=== PATIENT | female | born 1950 | race Caucasian/White ===

== ENCOUNTER → 2017-08-17 11:44 | Outpatient (CLI) | payer MEDICARE, MEDICAID, SELFPAY ==
[2017-08-17 12:49] LABS: Basophils % 0.5 % (0.1-2.0); Eosinophils # 0.1 K/mm3 (0.0-0.4); Eosinophils % 2.7 % (0.1-12.0); Hematocrit 41.2 % (37.0-47.0); Hemoglobin 13.4 g/dL (12.2-16.2); Lymphocytes # 1.9 K/mm3 (0.7-4.5); Lymphocytes % 43.7 K/mm3 (10-50); Mean Corpuscular HGB Conc 32.5 g/dL (31.8-35.4); Mean Corpuscular Hemoglobin 35.2 pg (27.0-31.2); Mean Corpuscular Volume 108.1 fl (81-99); Mean Platelet Volume 8.5 fl (7.4-10.4); Monocytes # 0.3 K/mm3 (0.1-1.0); Monocytes % 7.3 % (1.7-9.3); Neutrophils % 45.8 % (37.0-80.0); Platelet Count 121 K/mm3 (142-424); Red Blood Count 3.81 M/mm3 (4.20-5.40); Red Cell Distribution Width 14.4 % (11.5-17.5); White Blood Count 4.4 K/mm3 (4.8-10.8)
== END ==
PROVIDERS: PCP Family Medicine; Visit Provider Family Medicine
DX: M05.721 Rheumatoid arthritis with rheumatoid factor of right elbow without organ or systems involvement (principal)
CPT/HCPCS: 36415; 85025

== ENCOUNTER → 2017-09-06 10:15 | Outpatient (CLI) | payer MEDICARE, MEDICAID, SELFPAY ==
--- NOTE | 2017-09-06 10:22 | XR_ITS ---
XR DEXA axial skeleton HISTORY: ITS.REASON: POST MENOPAUSAL ORDERING PHYSICIAN: Kane Sanchez MD PATIENT AGE: 67 years COMPARISON: None FINDINGS: The BMD measured at the left femoral is 0.713 g/cm squared with a T score of -2.3. This is considered Osteopenic according to the World Health Organization criteria. Fracture risk is Moderate. Treatment is advised. Lumbar spine density has a T score of -0.8 IMPRESSION: Osteopenia with moderate fracture risk. Treatment recommended. Suggest follow-up exam August 2019
--- NOTE | 2017-09-06 10:22 | MM_ITS ---
MM Dig screening mamm BI w/CAD CAD Screening COMPARISON: Digital mammograms 06/15/2016 and 08/29/2013 INDICATION: There is no personal or family history of breast cancer TECHNIQUE: Standard CC and MLO images were obtained. R2 CAD reviewed. FINDINGS: Scattered fibroglandular densities are seen throughout both breast. There are benign-appearing calcifications in each breast many of which are typical of secretory disease. There is no suspicious lesion and there are no suspicious microcalcifications. IMPRESSION: Stable exam with no suspicious lesion seen BI-RADS Category: 2 Benign Finding(s) RECOMMENDED FOLLOW-UP: 1YR - 1 YEAR FOLLOW-UP (A letter has been sent to the patient regarding results of the study.)
== END ==
PROVIDERS: Family Provider Family Medicine; PCP Family Medicine; Visit Provider Family Medicine
DX: Z12.31 Encounter for screening mammogram for malignant neoplasm of breast (principal); Z78.0 Asymptomatic menopausal state; Z13.820 Encounter for screening for osteoporosis
CPT/HCPCS: 77067; 77080

== ENCOUNTER → 2017-11-17 14:00 | Outpatient (CLI) | payer MEDICARE, MEDICAID, SELFPAY ==
[2017-11-17 14:38] LABS: Basophils % 0.5 % (0.1-2.0); Eosinophils # 0.1 K/mm3 (0.0-0.4); Hematocrit 41.1 % (37.0-47.0); Hemoglobin 13.6 g/dL (12.2-16.2); Lymphocytes # 1.7 K/mm3 (0.7-4.5); Lymphocytes % 34.4 K/mm3 (10-50); Mean Corpuscular HGB Conc 33.1 g/dL (31.8-35.4); Mean Corpuscular Hemoglobin 35.7 pg (27.0-31.2); Mean Corpuscular Volume 107.8 fl (81-99); Mean Platelet Volume 8.6 fl (7.4-10.4); Monocytes # 0.4 K/mm3 (0.1-1.0); Monocytes % 7.7 % (1.7-9.3); Neutrophils # 2.8 K/mm3 (1.8-7.8); Neutrophils % 55.5 % (37.0-80.0); Platelet Count 131 K/mm3 (142-424); Red Blood Count 3.81 M/mm3 (4.20-5.40)
[2017-11-17 15:23] LABS: Alanine Aminotransferase 39 U/L (12-78); Albumin Level 3.5 gm/dL (3.4-5.0); Alkaline Phosphatase 195 U/L (46-116); Aspartate Amino Transferase 45 U/L (15-37); Bilirubin,Direct 0.2 mg/dL (0.0-0.2); Bilirubin,Indirect 0.2 mg/dL (0.0-0.9); Bilirubin,Total 0.4 mg/dL (0.2-1.0); Total Protein,Serum 8.6 gm/dL (6.4-8.2)
== END ==
PROVIDERS: Visit Provider Family Medicine
DX: M05.721 Rheumatoid arthritis with rheumatoid factor of right elbow without organ or systems involvement (principal)
CPT/HCPCS: 36415; 80076; 85025

== ENCOUNTER → 2019-06-19 08:17 | Outpatient (CLI) | payer MEDICARE, SELFPAY ==
--- NOTE | 2019-06-19 08:21 | MM_ITS ---
PROCEDURE: MM DIG SCREENING MAMM BI W/CAD Patient Age:69Y CLINICAL INDICATION: SCREENING no hormones, no new complaints. Noncontributory family history. COMPARISON: [facility] DIGITAL MAMM-SCREEN BILATERAL from 08/21/2012 [facility] DIG MAMM-SCREEN DEBBIE from 08/29/2013 the [facility] DIG MAMM-SCREEN DEBBIE from 06/15/2016 [facility] MM Dig screening mamm BI w/CAD from 09/06/2017 TECHNIQUE: Standard CC and MLO images were obtained. R2 CAD reviewed. Additional MLO view nipple profile included FINDINGS: Today's technique slightly accentuates breast elements and markings bilaterally compared to prior studies. Minimal residual fibroglandular elements both breast . Slight progression of benign secretory type calcifications bilaterally particularly evident at the left breast. No suspicious grouped clustered microcalcifications otherwise seen.. No new focal mass. No dominant nor suspicious mass evident . Bilateral follow-up 1 year recommended IMPRESSION: No significant New findings Bilateral follow-up 1 year recommended Benign appearing calcifications bilaterally most evident left breast BI-RAD Category: 2 Benign Finding(s) FOLLOW-UP: 1YR 1 Year Follow-up (A letter has been sent to the patient regarding results of the study.) Dictated by: Mc Ferraro MD 06/21/2019 15:29 Electronically signed by Mc Ferraro MD in [place] 06/21/2019 15:29
== END ==
PROVIDERS: PCP Family Medicine; Visit Provider Family Medicine
DX: Z12.31 Encounter for screening mammogram for malignant neoplasm of breast (principal)
CPT/HCPCS: 77067

== ENCOUNTER → 2020-06-26 13:03 | Outpatient (CLI) | payer MEDICARE, SELFPAY ==
--- NOTE | 2020-06-26 13:06 | MM_ITS ---
PROCEDURE: MM DIG SCREENING MAMM BI W/CAD Referring Doctor: Kane Sanchez Patient Age:70Y CLINICAL INDICATION: SCREENING 70-year-old. Patient was difficult to position,-had difficulty holding still and was stiff No hormones. No new complaints Noncontributory family history COMPARISON: MG [facility] DIG MAMM-SCREEN DEBBIE from 08/29/2013 MG [facility] DIG MAMM-SCREEN DEBBIE from 06/15/2016 [facility] MM Dig screening mamm BI w/CAD from 09/06/2017 MG MM DIG SCREENING MAMM BI W/CAD from 06/19/2019 TECHNIQUE: Standard CC and MLO images were obtained. R2 CAD reviewed. Bilateral digital breast tomosynthesis included. Additional axillary CC views both breast included FINDINGS: Today's senior java web developer technique again slightly accentuates breast elements and markings bilaterally compared to prior studies.. [id number] al residual fibroglandular elements both breast again seen but with no new dominant or suspicious mass. No new suspicious calcifications. Left Breast-no new findings of significant concern Very slight progression linear calcifications left breast, most compatible with secretory type calcifications bilaterally particularly evident at the left breast. No suspicious grouped clustered microcalcifications otherwise seen.. No new focal mass. No dominant nor suspicious mass evident Right breast-stable appearance with no new areas of concern A few secretory calcifications seen on right breast as well Bilateral follow-up 1 year recommended IMPRESSION: No significant New findings. Overall stable mammogram Bilateral follow-up 1 year recommended Benign appearing calcifications bilaterally again seen, most notable at left breast BI-RAD Category: 2 Benign Finding(s) FOLLOW-UP: 1YR 1 Year Follow-up (A letter has been sent to the patient regarding results of the study.) Dictated by: Mc Ferraro MD 07/01/2020 13:48 Mc Ferraro MD in [place] 07/01/2020 13:48
== END ==
PROVIDERS: PCP Family Medicine; Visit Provider Family Medicine
DX: Z12.31 Encounter for screening mammogram for malignant neoplasm of breast (principal)
CPT/HCPCS: 77063; 77067

== ENCOUNTER → 2021-01-27 08:36 | Outpatient (CLI) | payer MEDICARE, OTHER, SELFPAY ==
--- NOTE | 2021-01-27 08:48 | CT_ITS ---
PROCEDURE: CT ABDOMEN PELVIS WO/W CON CLINICAL INDICATION: GROSS HEMATURIA COMPARISON: No exams were available for comparison TECHNIQUE: IV Contrast: 75ML OPTIRAY 350 Oral Contrast 20ml Gastroview Axial images obtained with sagittal and coronal reformats. All CT scans at the facility use one or more dose reduction, viz: automated exposure control, ma/kV adjustment per patient size (including targeted exams where dose is matched to indication, i.e. head), or iterative reconstruction technique. FINDINGS: Lower thorax: Posterior basilar segment right lower lobe abutting the pleura measuring 2.5 x 2.4 by 2.6 cm. This appears worsened for primary bronchogenic carcinoma. A hamartoma could give this appearance as well. It shows mild peripheral enhancement following injection contrast. Recommend follow-up dedicated CT scan chest additional evaluation. ABDOMEN: Liver: No masses or biliary dilatation. Gallbladder: Post cholecystectomy Pancreas: No masses or peripancreatic fluid collections. Spleen: unremarkable Adrenals: unremarkable Kidneys/ureters: unremarkable the kidneys are normal in size and show symmetrical function both appearing normal. ABDOMEN & PELVIS: Stomach bowel: Nondistended. No obvious mass or thickening. The small bowel appears normal. There is scattered stool and gas seen throughout the colon nasal oral contrast. There is diffuse diverticulosis of the sigmoid colon with mild diffuse wall thickening. No definite evidence of diverticulitis. Peritoneum: No abnormal fluid collections. No obvious inflammatory changes. No free air. Lymph nodes: No enlarged lymph nodes apparent. Vasculature: Prominent diffuse arthrosclerotic calcification of the abdominal aorta proximal iliac arteries but there is no aneurysm. Bones: There are mild multilevel degenerate changes of the lower thoracic and upper lumbar spine. PELVIS: Reproductive: The uterus is normal in size and mildly retroverted. are no definite filling defects Appendix: Not definitely visualized but there are no pericecal inflammatory changes noted.. Bladder: The urinary bladder is partially decompressed but there is no definite mass. IMPRESSION: 1. Somewhat suspicious mass posterior basilar segment right lower lobe, see recommendations above 2. Mild diverticulosis of the sigmoid colon without diverticulitis. 3. Grossly normal appearing bilateral kidneys and urinary bladder Dictated by: Dr. Buddy Pretty MD 01/27/2021 15:49 Dr. Buddy Pretty MD in [place] 01/27/2021 15:49
[2021-01-27 09:47] LABS: Blood Urea Nitrogen 20 mg/dl (7-17); Estimated Glomerular Filt Rate 45 ml/min (>60); GFR (African American) 54 ML/MIN (>60)
== END ==
PROVIDERS: PCP Family Medicine; Visit Provider Family Medicine
DX: I10 Essential (primary) hypertension (principal); R31.0 Gross hematuria
CPT/HCPCS: 36415; 74178; 82565; 84520; Q9967

== ENCOUNTER → 2021-03-01 09:45 | Outpatient (CLI) | payer MEDICARE, OTHER, SELFPAY ==
--- NOTE | 2021-03-01 10:03 | CT_ITS ---
PROCEDURE: CT CHEST WO/W CON CLINCAL INDICATION: SMOKER,NEOPLASM OF UNCERTAIN BEHAVIOR OF RT LOWER LUNG Pulmonary nodule noted in the right lung base on recent abdomen CT. COMPARISON: CT CT ABDOMEN PELVIS WO/W CON from 01/27/2021 TECHNIQUE: IV Contrast: 75ml Isovue 370 Axial images obtained with sagittal and coronal reformats. All CT scans at the facility use one or more dose reduction, viz: automated exposure control, ma/kV adjustment per patient size (including targeted exams where dose is matched to indication, i.e. head), or iterative reconstruction technique. FINDINGS: No mediastinal or hilar mass or adenopathy. Coronary artery calcifications are. COPD changes with scattered areas scarring. There is a noncalcified 3.4 x 3.3 x 2.5 cm mass in the right lower lobe posteriorly. The mass is somewhat spiculated with linear septations best demonstrated on the coronal reformatted images. This abuts the pleural surface. Cannot exclude pleural involvement. No obvious extension to the chest wall deep to the pleura. This is highly suspicious for malignancy. No pleural effusion. The left lung is clear. There is some peripheral contrast enhancement involving the lesion with decrease density centrally on the post enhanced images. The areas of decreased density however do not appear to represent fat as 1 would expect for hamartoma. The central decreased density may be due to developing necrosis. There are degenerative changes in the thoracic spine. The liver margin is somewhat irregular which may be seen with some developing cirrhosis. Please correlate clinically. IMPRESSION: 3.4 x 3.3 x 2.5 cm right lower lobe soft tissue mass as described above highly suspicious for malignancy. This should be amenable to percutaneous CT directed biopsy if clinically desired. No obvious mediastinal or hilar adenopathy and no pleural effusions apparent. Dictated by: Samir Wells MD 03/02/2021 05:16 Samir Wells MD in [place] 03/02/2021 05:16
[2021-03-01 10:11] LABS: Blood Urea Nitrogen 23 mg/dl (7-17); Estimated Glomerular Filt Rate 41 ml/min (>60); GFR (African American) 49 ML/MIN (>60)
== END ==
PROVIDERS: PCP Family Medicine; Visit Provider Family Medicine
DX: D38.1 Neoplasm of uncertain behavior of trachea, bronchus and lung (principal); F17.210 Nicotine dependence, cigarettes, uncomplicated
CPT/HCPCS: 36415; 71270; 82565; 84520; Q9967

== ENCOUNTER → 2021-04-29 08:59 | Outpatient (CLI) | payer MEDICARE, OTHER, SELFPAY ==
[2021-04-29 09:23] VITALS: BMI 23.1
[2021-04-29 09:40] VITALS: BP 141/61; PULSE 63; RESP 18; TEMP 36.4; O2SAT 95
--- NOTE | 2021-04-29 10:01 | CT_ITS ---
PROCEDURE: CT BIOPSY LUNG RT CLINICAL HISTORY: NEOPLASM RT LOWER LUNG COMPARISON: CT CT CHEST WO/W CON from 03/01/2021 TECHNIQUE: Axial images obtained with sagittal and coronal reformats. All CT scans at the facility use one or more dose reduction, viz: automated exposure control, ma/kV adjustment per patient size (including targeted exams where dose is matched to indication, i.e. head), or iterative reconstruction technique. FINDINGS: Following obtaining informed consent and time-out procedure and sedation with 0.5 mg of Versed IV and 25 mcg of fentanyl IV under aseptic conditions and local anesthesia with 1 percent buffered lidocaine using CT guidance, a 20 gauge Chiba needle was directed into the right lower lobe mass. Three passes were made into the lesion with CT guidance. Pathologist was present and confirm cytology. Patient tolerated the procedure well without evidence of immediate complication and left radiology suite in stable condition. Post biopsy chest x-ray x2 show no evidence of pneumothorax. Pre biopsy images once again demonstrated the right lower lobe mass posteriorly peripherally based. The mass does appear to have increased in size since the previous exam measuring 4 x 3 cm transverse and AP previously 3 x 2.7 cm. The lower margin of the mass now appears to extend into the chest wall posteriorly or at least into the pleural surface at the 11th rib interspace posteriorly. No obvious mediastinal or hilar adenopathy on this unenhanced exam. Coronary artery calcifications. Cytology is pending. IMPRESSION: Uneventful CT-guided biopsy of the right lower lobe mass. Cytology pending. The right lower lobe mass has slightly increased in size from 03/01/2021 and may now extending into the posterior chest wall. Dictated by: Samir Wells MD 04/30/2021 07:04 Samir Wells MD in [place] 04/30/2021 07:04
[2021-04-29 10:07] LABS: Activated Partial Thrombo Time 25.4 seconds (22.8-30.6); INR 0.99 (0.9-1.1); Prothrombin Time 11.2 seconds (10.1-12.5)
--- NOTE | 2021-04-29 12:26 | XR_ITS ---
PROCEDURE: XR CHEST AP CLINICAL HISTORY: Follow-up right-sided lung biopsy, evaluate for pneumothorax COMPARISON: CT CT CHEST WO/W CON from 03/01/2021 FINDINGS: No evidence of pneumothorax. Unremarkable cardiovascular structures. COPD with mild prominence of the interstitium. Right lower lobe mass once again noted at approximately 3.8 2.7 cm. IMPRESSION: No evidence of pneumothorax. Right lower lobe mass suspicious for neoplasm Dictated by: Samir Wells MD 04/29/2021 13:54 Samir Wells MD in [place] 04/29/2021 13:54
--- NOTE | 2021-04-29 15:06 | XR_ITS ---
PROCEDURE: XR CHEST 2V CLINICAL HISTORY: POST CT LUNG BIOPSY COMPARISON: CT CT CHEST WO/W CON from 03/01/2021 CR XR CHEST AP from 04/29/2021 FINDINGS: The cardiomediastinal silhouette and pulmonary vascularity are within normal limits. COPD changes. Right lower lobe mass once again noted unchanged. There is no evidence of pneumothorax. Degenerative changes thoracic spine. IMPRESSION: No evidence of pneumothorax. No change right lower lobe mass Dictated by: Samir Wells MD 04/29/2021 15:25 Samir Wells MD in [place] 04/29/2021 15:25
== END ==
PROVIDERS: Radiology Diagnostic Radiology; PCP Family Medicine; Visit Provider Family Medicine
DX: D38.1 Neoplasm of uncertain behavior of trachea, bronchus and lung (principal); Z51.81 Encounter for therapeutic drug level monitoring
CPT/HCPCS: 32408; 71045; 71046; 77012; 85610; 85730; 88172; 88173; 88305; 88342

== ENCOUNTER → 2021-07-05 10:09 | Outpatient (CLI) | payer MEDICARE, OTHER, SELFPAY ==
--- NOTE | 2021-07-05 10:14 | MM_ITS ---
PROCEDURE INFORMATION: Exam: MG Bilateral Screening 3D Mammography Exam date and time: 07/05/2021 10:14 AM Age: 71 years old Clinical indication: screening mammogram TECHNIQUE: Imaging protocol: Bilateral screening tomosynthesis and 2D mammography including computer-aided detection (CAD) when performed. COMPARISON: 1. MG MM DIG SCREENING MAMM BI W/CAD 06/26/2020 1:06 PM 2. MG MM DIG SCREENING MAMM BI W/CAD 06/19/2019 8:35 AM 3. MG [facility] MM Dig screening mamm BI w/CAD 09/06/2017 10:30 AM 4. MG [facility] DIG MAMM-SCREEN DEBBIE 06/15/2016 5:35 PM FINDINGS: MAMMOGRAPHY: Breast composition: There are scattered areas of fibroglandular density. Mass: None. Architectural distortion: No new or suspicious architectural distortion. Calcifications: Stable benign-appearing calcifications are present. No new or suspicious cluster of microcalcifications have developed. Asymmetric density: No new or suspicious asymmetric density is present Skin thickening: None. Axillary adenopathy: None. IMPRESSION: No mammographic evidence of malignancy. Recommend annual screening mammography unless otherwise clinically indicated. ASSESSMENT: BI-RADS category 2: Benign
== END ==
PROVIDERS: PCP Family Medicine; Visit Provider Family Medicine
DX: Z12.31 Encounter for screening mammogram for malignant neoplasm of breast (principal)
CPT/HCPCS: 77063; 77067

== ENCOUNTER → 2021-10-19 11:24 | Outpatient (POV) | payer MEDICARE, OTHER, SELFPAY | PROVIDERS: Visit Provider Dermatology | DX: Z00.00 Encounter for general adult medical examination without abnormal findings (principal) ==

== ENCOUNTER → 2022-07-28 08:51 | Outpatient (CLI) | payer MEDICARE, OTHER, SELFPAY ==
--- NOTE | 2022-07-28 09:04 | CT_ITS ---
FINAL REPORT TECHNIQUE: Thin section axial images were obtained through the abdomen after intravenous contrast. Oral contrast was given. Reconstruction images were obtained from the axial data. This study was performed with techniques to keep radiation doses as low as reasonably achievable (ALARA). Individualized dose reduction techniques using automated exposure control or adjustment of mA and/or kV according to the patient's size were employed. CLINICAL HISTORY: Lung cancer diagnosed in 2021 COMPARISON: 01/27/2021 FINDINGS: No focal liver lesion is identified. There is a nodular contour to the liver consistent with cirrhosis. There is a recanalized paraumbilical vein. The spleen and pancreas are unremarkable. There is a left adrenal nodule which is stable. Right adrenal gland is normal. The kidneys are normal. Abdominal GI tract is without acute abnormality. There is no abdominal lymphadenopathy or ascites. The uterus is present. The endometrium is prominent for age. The ovaries are normal for age. The appendix is normal. There is diverticulosis without evidence of diverticulitis. There is wall thickening of the sigmoid colon, unchanged from prior. No surrounding inflammation is identified. There is no pelvic lymphadenopathy or ascites. No acute osseous abnormalities identified. IMPRESSION: No evidence of metastatic disease in the abdomen or pelvis. Cirrhosis. Diverticulosis with stable presumed chronic wall thickening of the sigmoid colon. Prominent endometrium. If patient has abnormal uterine bleeding, recommend follow-up ultrasound. Reviewed, Interpreted and Dictated by Rocio Javed MD Transcribed by Melody Byrd Authenticated and . [facility]
--- NOTE | 2022-07-28 09:04 | CT_ITS ---
FINAL REPORT TECHNIQUE: Thin section axial images were obtained from the thoracic inlet through the upper abdomen after intravenous contrast injection. This study was performed with techniques to keep radiation doses as low as reasonably achievable (ALARA). Individualized dose reduction techniques using automated exposure control or adjustment of mA and/or kV according to the patient's size were employed. CLINICAL HISTORY: Lung cancer diagnosed in 2021 COMPARISON: 03/01/2021 FINDINGS: There is no axillary or mediastinal lymphadenopathy. There is new right infrahilar lymphadenopathy measuring 2.8 cm. There is no pleural or pericardial effusion. There is a right lower lobe mass measuring 3.5 cm, previously measured 3 cm. It is now cavitary. There is a subpleural left upper lobe ground-glass nodule measuring 6 mm which is new. This is best seen on image 30. Note is made of emphysema. The lungs are otherwise clear. There is no acute osseous abnormality. IMPRESSION: Interval increase in size in the right lower lobe mass consistent with worsening or recurrent disease. A new right infrahilar lymphadenopathy, likely metastatic. New subcentimeter left upper lobe nodule. Reviewed, Interpreted and Dictated by Rocio Javed MD Transcribed by Melody Byrd Authenticated and [facility]
[2022-07-28 09:11] LABS: Blood Urea Nitrogen 19 mg/dl (7-17); Estimated Glomerular Filt Rate 40 ml/min (>60); GFR (African American) 49 ML/MIN (>60)
== END ==
PROVIDERS: PCP Family Medicine; Visit Provider Internal Medicine Medical Oncology
DX: C34.91 Malignant neoplasm of unspecified part of right bronchus or lung (principal); Z03.89 Encounter for observation for other suspected diseases and conditions ruled out
CPT/HCPCS: 36415; 71260; 74177; 82565; 84520; Q9967

== ENCOUNTER → 2022-08-26 09:50 | Outpatient (CLI) | payer MEDICARE, OTHER, SELFPAY | PROVIDERS: PCP Family Medicine; Visit Provider Internal Medicine Pulmonary Disease | DX: R06.09 Other forms of dyspnea (principal) | CPT/HCPCS: 94060; 94618 ==

== ENCOUNTER → 2022-12-15 08:24 | Outpatient (CLI) | payer MEDICARE, OTHER, SELFPAY ==
--- NOTE | 2022-12-15 08:30 | MM_ITS ---
PROCEDURE INFORMATION: Exam: MG Bilateral Screening 3D Mammography Exam date and time: 12/15/2022 8:23 AM Age: 72 years old Clinical indication: Screening examination TECHNIQUE: Imaging protocol: Bilateral Screening tomosynthesis and 2D mammography including computer-aided detection (CAD) when performed. COMPARISON: 1. MG MM DIG SCREENING MAMM BI W/CAD 07/05/2021 10:11 AM 2. MG MM DIG SCREENING MAMM BI W/CAD 06/26/2020 1:06 PM FINDINGS: MAMMOGRAPHY: Breast composition: There are scattered areas of fibroglandular density. Mass: None. Architectural distortion: None. Calcifications: No suspicious calcifications. Asymmetric density: None. Skin thickening: None. Axillary adenopathy: None. IMPRESSION: No mammographic evidence of malignancy. Annual screening is recommended unless otherwise clinically indicated. ASSESSMENT: BI-RADS Category 1: Negative
--- NOTE | 2022-12-15 08:30 | XR_ITS ---
FINAL REPORT CLINICAL HISTORY: osteoperosis COMPARISON: None FINDINGS: Using L1-4, the bone mineral density of the spine is 0.927 g/cm2, corresponding to T-score of -1.1, consistent with osteopenia. Using the left hip, the bone mineral density of the femoral neck is 0.612 g/cm2, corresponding to a T-score of -2.7, consistent with osteoporosis. Using the right hip, the bone mineral density of the femoral neck is 0.564 g/cm2, corresponding to a T-score of -2.6, consistent with osteoporosis. FRAX not reported because: Some T-score for Spine Total or hip Total or femoral neck at or below -2.5. Treated for osteoporosis. NOTE: T-score: Standard deviation compared with peak bone mass of young adult mean. *Following the recommendations of the International Society of Bone densitometry, classification of hip BMD is based on the lower of two T-scores; total hip or femoral neck. IMPRESSION: Diminished bone mineral density consistent with osteopenia in the lumbar spine and osteoporosis in the bilateral hips. Reviewed, Interpreted and Dictated by Lulu Hernandez MD Transcribed by Yvette Mckinney Authenticated and [facility]
== END ==
PROVIDERS: PCP Family Medicine; Visit Provider Nurse Practitioner Family
DX: Z12.31 Encounter for screening mammogram for malignant neoplasm of breast (principal); M81.0 Age-related osteoporosis without current pathological fracture
CPT/HCPCS: 77063; 77067; 77080

== ENCOUNTER 2023-12-25 15:49 | Outpatient (CLI) | payer MEDICARE, OTHER, SELFPAY ==
[2023-12-25 15:35] LABS: Microscopic, Urine URINE MICROSCOPIC (MICROSCOPIC)
[2023-12-25 16:13] LABS: Appearance,Urine CLEAR (Clear); Bilirubin,Urine 1+ (Negative); Blood, Urine 2+ (Negative); Color,Urine YELLOW (Yellow); Glucose,Urine (UA) Negative (Negative); Ketones,Urine Negative (Negative); Leukocyte Esterase,Urine 2+ (Negative); Nitrate,Urine Negative (Negative); PH,Urine 6.5 (5.0-8.5); Protein,Urine TRACE (Negative)
[2023-12-25 16:57] LABS: Bacteria,Urine Trace /lpf
[2023-12-25 16:58] LABS: RBC,Urine Occasional #/hpf (0-3)
[2024-01-04 17:30] LABS: Atopobium vaginae Low - 0 Score (.); BVAB2 Low - 0 Score (.); Candida albicans NAA Negative (Negative); Candida glabrata Negative (Negative); Chlamydia Trachomatis NAA Negative (Negative); HSV 1 NAA Negative (Negative); HSV 2 NAA Negative (Negative); Megasphaera 1 Low - 0 Score (.); Neisseria gonorrhoeae NAA Negative (Negative); Trich vag NAA Negative (Negative)
== END 2023-12-25 23:59 | disposition home or self-care (01) ==
LOC: LAB.DROPOF 15:50
PROVIDERS: PCP Urology; Visit Provider Urology
DX: N76.0 Acute vaginitis (principal); R31.9 Hematuria, unspecified; M05.721 Rheumatoid arthritis with rheumatoid factor of right elbow without organ or systems involvement
CPT/HCPCS: 81001; 87086; 87491; 87529; 87563; 87591; 87661; 87798; 87801

== ENCOUNTER 2024-08-16 07:34 | Outpatient (CLI) | payer MEDICARE, OTHER, SELFPAY ==
--- NOTE | 2024-08-16 07:35 | CT_ITS ---
FINAL REPORT TECHNIQUE: Axial CT of the abdomen and pelvis, without and with IV contrast. This study was performed with techniques to keep radiation doses as low as reasonably achievable, (ALARA). Individualized dose reduction techniques using automated exposure control or adjustment of mA and/or kV according to the patient''s size were employed. CLINICAL HISTORY: Hematuria COMPARISON: 07/28/2022 FINDINGS: Abdomen: There is right lower lobe mass measuring 70 x 52 mm with pleural and paraspinal involvement, likely extends to the chest wall to involve the right T11 and T12 ribs. Liver has an unremarkable CT appearance. The spleen and pancreas unremarkable. There is mild enlargement of the left adrenal gland, similar to prior, probably due to benign adenoma. There is an enlarged paraumbilical vein suggesting underlying portal hypertension. Precontrast imaging shows no renal stone disease. Postcontrast imaging of the kidneys shows no mass or obstruction. No bowel obstruction or fluid collection is seen. Pelvis: There is mild sigmoid diverticulosis. Bladder diverticula are identified. The uterus is retroverted. The appendix is not visualized. Pelvic bowel loops are unremarkable. No fluid collection or adenopathy is seen. IMPRESSION: No findings to account for patient's hematuria. No evidence of metastatic disease in the abdomen or pelvis. Findings suggest portal hypertension. Large right lower lobe mass with pleural and chest wall involvement. Reviewed, Interpreted and Dictated by Lulu Hernandez MD Transcribed by Melody Byrd Authenticated and [facility]
--- NOTE | 2024-08-16 07:39 | CT_ITS ---
FINAL REPORT CLINICAL HISTORY: LBP COMPARISON: None FINDINGS: CT LUMBAR SPINE TECHNIQUE: Thin section noncontrast axial CT with sagittal reconstructions This study was performed with techniques to keep radiation doses as low as reasonably achievable, (ALARA). Individualized dose reduction techniques using automated exposure control or adjustment of mA and/or kV according to the patient's size were employed. FINDINGS: There is moderate to diffuse degenerative disc disease present in the lumbar spine, without evidence of fracture or high-grade stenosis. There is incidental note made of a right lower lobe mass which extends into the right chest wall in the right paraspinal region at the T11 and T12 levels. There is probable extension of tumor into the right T11-12 neural foramen. IMPRESSION: Moderate to diffuse degenerative disc disease without evidence of fracture or high-grade stenosis. Right lower lobe mass which extends into the chest wall and right paraspinous region, with probable extension of tumor into the right T11-12 neural foramen. Reviewed, Interpreted and Dictated by Lulu Hernandez MD Transcribed by Kathie Ribera Authenticated and [facility]
[2024-08-16 08:02] LABS: Blood Urea Nitrogen 50 mg/dl (7-17); Estimated Glomerular Filt Rate 32 ml/min (>60); GFR (African American) 38 ML/MIN (>60)
[2024-08-16] MEDS: 0.9 % SODIUM CHLORIDE 50 ML VIAL IV (08:57)
[2024-08-16] MEDS: SODIUM CHLORIDE 0.9% 10ML SYR (RAD ONLY) 10 ML IV (08:57)
[2024-08-16] MEDS: IOPAMIDOL-370 (76%);100ML BOTTLE 50 ML IV (08:57)
== END 2024-08-16 23:59 | disposition home or self-care (01) ==
PROVIDERS: PCP Nurse Practitioner; Visit Provider Urology
DX: M54.50 Low back pain, unspecified (principal); R31.9 Hematuria, unspecified
CPT/HCPCS: 36415; 72131; 74178; 82565; 84520; Q9967

== ENCOUNTER 2024-09-03 23:15 | Observation (INO) | payer MEDICARE, OTHER, SELFPAY ==
[2024-09-03 23:05] VITALS: BP 129/55; PULSE 80; RESP 20; TEMP 36.9; O2SAT 100; BMI 22.3
--- NOTE | 2024-09-03 23:12 | CT_ITS ---
PROCEDURE INFORMATION: Exam: CT Abdomen And Pelvis With Contrast Exam date and time: 09/04/2024 12:18 AM Age: 74 years old Clinical indication: Vomiting; Additional info: Vomiting, cancer patient TECHNIQUE: Imaging protocol: Computed tomography of the abdomen and pelvis with contrast. 3D rendering (Not supervised by radiologist): MIP and/or 3D reconstructed images were created by the technologist. Radiation optimization: All CT scans at this facility use at least one of these dose optimization techniques: automated exposure control; mA and/or kV adjustment per patient size (includes targeted exams where dose is matched to clinical indication); or iterative reconstruction. Contrast material: ISOVUE; Contrast volume: 70 ml; Contrast route: IV; COMPARISON: CT ABDOMEN PELVIS WO/W CON 08/16/2024 8:43 AM FINDINGS: Liver: The liver is cirrhotic. Gallbladder and biliary ducts: The gallbladder is absent. Pancreas: Normal. No ductal dilation. Spleen: Normal. No splenomegaly. Adrenal glands: Normal. No mass. Kidneys and ureters: Normal. No hydronephrosis. Stomach and bowel: Numerous sigmoid diverticula without inflammatory changes. Appendix: No evidence of appendicitis. Intraperitoneal space: Unremarkable. No free air. No significant fluid collection. Vasculature: Extensive calcification of the aorta and branch vessels. There is no aneurysm. There is recanalization of the umbilical vein. Lymph nodes: Unremarkable. No enlarged lymph nodes. Urinary bladder: Unremarkable as visualized. Reproductive: Unremarkable as visualized. Bones/joints: 8.5 cm soft tissue mass at the right lung base which extends into the posterior chest wall with erosion of the right 11th rib and probable invasion of the paraspinous musculature. Degenerative changes of the lumbar spine. Soft tissues: See Bones/joints finding. IMPRESSION: No acute intra-abdominal abnormality. 8.5 cm soft tissue mass at the right lung base which extends into the posterior chest wall with erosion of the right 11th rib and probable invasion of the paraspinous musculature. Hepatic cirrhosis with evidence of portal hypertension. Atherosclerotic vascular disease. Diverticulosis of the colon.
--- NOTE | 2024-09-03 23:12 | CT_ITS ---
PROCEDURE INFORMATION: Exam: CTA Chest With Contrast Exam date and time: 09/04/2024 12:18 AM Age: 74 years old Clinical indication: Other: Hypoxia; Additional info: Hypoxia cancer general weakness TECHNIQUE: Imaging protocol: Computed tomographic angiography of the chest with contrast. Exam focused on the arteries. 3D rendering (Not supervised by radiologist): MIP and/or 3D reconstructed images were created by the technologist. Radiation optimization: All CT scans at this facility use at least one of these dose optimization techniques: automated exposure control; mA and/or kV adjustment per patient size (includes targeted exams where dose is matched to clinical indication); or iterative reconstruction. Contrast material: ISOVUE; Contrast volume: 70 ml; Contrast route: INTRAVENOUS (IV); COMPARISON: CT CHEST W CON 07/28/2022 9:51 AM FINDINGS: Pulmonary arteries: Normal. No pulmonary emboli. Aorta: Mild calcification of the aorta. Lungs: 8.5 x 7 x 8.5 cm soft tissue mass in the posteromedial right lower lobe. Pleural spaces: Unremarkable. No pneumothorax. No pleural effusion. Heart: Unremarkable. No cardiomegaly. No pericardial effusion. Coronary arteries: Moderate calcification of the coronary arteries. Lymph nodes: Unremarkable. No enlarged lymph nodes. Bones/joints: The mass surrounds and erodes the right 11th rib. Soft tissues: Unremarkable. IMPRESSION: No pulmonary embolus. No aortic aneurysm. 8.5 x 7 x 8.5 cm soft tissue mass in the posteromedial right lower lobe.
--- NOTE | 2024-09-03 23:13 | CT_ITS ---
PROCEDURE INFORMATION: Exam: CT Head Without Contrast Exam date and time: 09/04/2024 12:15 AM Age: 74 years old Clinical indication: Other: Weakness; Additional info: Generalized weakness known met cancer TECHNIQUE: Imaging protocol: Computed tomography of the head without contrast. Radiation optimization: All CT scans at this facility use at least one of these dose optimization techniques: automated exposure control; mA and/or kV adjustment per patient size (includes targeted exams where dose is matched to clinical indication); or iterative reconstruction. COMPARISON: No relevant prior studies available. FINDINGS: Brain: No hemorrhage. Periventricular hypoattenuation. Likely chronic microvascular ischemic demyelination. . No mass effect. Moderate generalized atrophy Cerebral ventricles: No ventriculomegaly. Paranasal sinuses: Visualized sinuses are unremarkable. No fluid levels. Mastoid air cells: Visualized mastoid air cells are well aerated. Orbital cavities: Bilateral lens replacement. Bones: Unremarkable. No acute fracture. Soft tissues: Unremarkable. IMPRESSION: No acute intracranial abnormality.
[2024-09-03] MEDS: LACTATED RINGERS 1000ML 1,000 ML 999 ML IV (23:28)
[2024-09-03 23:29] LABS: VBG Base Excess 4.5 mmol/L (-2.4-2.3); VBG HCO3 29.3 mmol/L (23-30); VBG Oxygen Saturation 55.1 % (50-70); VBG PCO2 48.3 mmol/L (35-51); VBG PO2 28.9 mmol/L (28-40); VBG Total CO2 30.8 mmol/L (23-27)
--- NOTE | 2024-09-03 23:29 | ECG_ITS ---
APPROVED REPORT Exam: Resting ECG HR:80 bpm ECG Measurements Heart Rate 80 AXES QRSd 80 QRS 84 QT 392 T 54 QTc 428 Conclusion Sinus rhythm NONSPECIFIC T-WAVE ABNORMALITY No STEMI Electronically signed by : ARIES NATHAN, 09/06/2024 07:02:46
[2024-09-03 23:30] LABS: Basophils # 0.1 K/mm3 (0-0.2); Basophils % 0.3 % (0.1-2.0); Eosinophils % 0.1 % (0.1-12.0); Hematocrit 32.6 % (37.0-47.0); Hemoglobin 10.2 g/dL (12.2-16.2); Lymphocytes # 1.5 K/mm3 (0.7-4.5); Lymphocytes % 8.9 % (10-50); Mean Corpuscular HGB Conc 31.3 g/dL (31.8-35.4); Mean Corpuscular Hemoglobin 32.7 pg (27.0-31.2); Mean Corpuscular Volume 104.5 fl (81-99); Mean Platelet Volume 10.2 fl (7.4-10.4); Monocytes # 0.9 K/mm3 (0.1-1.0); Neutrophils # 14.6 K/mm3 (1.8-7.8); Neutrophils % 84.9 % (37.0-80.0); Platelet Count 544 K/mm3 (142-424); Red Blood Count 3.12 M/mm3 (4.20-5.40); Red Cell Distribution Width 16.4 % (11.5-17.5); White Blood Count 17.2 K/mm3 (4.8-10.8)
[2024-09-03 23:33] VITALS: BP 118/50; PULSE 68; O2SAT 88
[2024-09-03 23:33] LABS: MANUAL DIFFERENTIAL MANUAL DIFFERENTIAL (MANUAL DIFF)
[2024-09-03 23:36] LABS: INR 1.01 (0.9-1.1); Prothrombin Time 11.1 seconds (9.2-12.1)
[2024-09-03 23:37] LABS: Coronavirus 19, PCR Not Detected (NotDetected); Influenza A, PCR Not Detected (NotDetected); Influenza B, PCR Not Detected (NotDetected)
[2024-09-03 23:37] LABS: Microscopic, Urine URINE MICROSCOPIC (MICROSCOPIC)
[2024-09-03 23:39] LABS: Bilirubin,Urine Negative (Negative); Blood, Urine TRACE-I (Negative); Color,Urine YELLOW (Yellow); Glucose,Urine (UA) Negative (Negative); Ketones,Urine Negative (Negative); Leukocyte Esterase,Urine Negative (Negative); Nitrate,Urine Negative (Negative); Protein,Urine TRACE (Negative)
--- NOTE | 2024-09-03 23:40 | [facility].EDGENADL ---
Discharge Plan Disposition Patient Disposition: Admitted Condition: Fair Prescriptions Prescriptions: No Action atenolol 25 mg tablet 25 mg PO DAILY triamterene-hydrochlorothiazid 37.5-25 mg capsule 37.5 cap PO DAILY rosuvastatin 10 mg tablet 10 mg PO DAILY fluconazole 150 mg tablet See Rx Instructions .Route .COMPLEX Qty: 6 0RF Rx Instructions: One Daily for three days and then once weekly; estradiol 0.01 % (0.1 mg/gram) cream See Rx Instructions vaginal .COMPLEX Qty: 42.5 2RF Rx Instructions: Using finger technique daily for two weeks and then twice weekly vaginally; albuterol sulfate 90 mcg/actuation HFA aerosol inhaler 2 inh inhalation QID PRN (Reason: shortness of breath or wheezing) 90 Days Qty: 8.5 2RF ipratropium-albuterol 0.5 mg-3 mg(2.5 mg base)/3 mL solution for nebulization 3 ml inhalation QID PRN (Reason: shortness of breath or wheezing) 90 Days Qty: 360 3RF Stiolto Respimat 2.5-2.5 mcg/actuation mist 2 puff inhalation DAILY 90 Days Qty: 4 0RF Referrals Follow up/Referrals: Provider,Referral, MD [Primary Care Provider] - See instructions Clinical Impressions Clinical Impression: UTI (urinary tract infection), Lung cancer, Generalized weakness Print Language Print Language: Italian Discharge ED Provider: Arun Hudson Adult HPI General Chief complaint: Nausea/Vomiting/Diarrhea Stated complaint: Weakness Time Seen by Provider: 09/03/24 23:15 Mode of Arrival: EMS Source of Information: Patient Limitations: No Limitations Description of Symptoms (Recalled from ER Triage Doc. by RN): Generalized weakness worse today with some nausea and vomiting History of Present Illness HPI narrative: 74-year-old female with known, untreated metastatic lung cancer presents to the ER for complaints of generalized weakness that have been worsening in the last 2 days. Patient presented via EMS who helped provide history, as well as her daughter who is at bedside. EMS reports they found her hypoxic in the mid 80s though she does not wear nasal cannula at home. They placed her on 2 L and her oxygenation improved to the mid 90s. EMS reports they administered breathing treatment and route since patient was hypoxic but she was not wheezing. They reported she had had vomiting earlier today as well but was not complaining of nausea or abdominal pain. Reportedly patient has not had any falls, does not take blood thinners. Daughter provides additional history stating patient has seemed worse in the last 2 days, her generalized weakness is worse, she reportedly felt swimmy after receiving her home hydrocodone dose and then had nausea and emesis. Daughter states that the patient manages her home medications and she is not clear how much of her hydrocodone she is or is not taking. Patient reports no chest pain or sensation of shortness of breath. She has not had cough, fevers, chills, she has chronic back pain and pain in the skin of the left hip. Back pain according to daughter secondary to known metastasis to the spine, left hip pain is secondary to pressure ulcer since patient typically lies on her left side. It is being treated with medications at home. Daughter reports that hospice is supposed to come to the house on Monday for evaluation. Related Data Home Medications ?Medication ?Instructions ?Recorded ?Confirmed atenolol 25 mg tablet 25 mg PO DAILY DAILY 06/27/19 12/25/23 rosuvastatin 10 mg tablet 10 mg PO DAILY Cholesterol 06/27/19 12/25/23 triamterene 37.5 37.5 cap PO DAILY BP 06/27/19 12/25/23 mg-hydrochlorothiazide 25 mg capsule Previous Rx's ?Medication ?Instructions ?Recorded albuterol sulfate 90 mcg/actuation 2 inh inhalation QID PRN shortness 08/29/22 aerosol inhaler of breath or wheezing 90 days #8.5 grams ipratropium 0.5 mg-albuterol 3 mg 3 ml inhalation QID PRN shortness 08/29/22 (2.5 mg base)/3 mL nebulization of breath or wheezing 90 days #360 soln mL estradiol 0.01% (0.1 mg/gram) See Rx Instructions vaginal 12/25/23 vaginal cream .COMPLEX #42.5 grams fluconazole 150 mg tablet See Rx Instructions .Route 12/25/23 .COMPLEX #6 tabs tiotropium 2.5 mcg-olodaterol 2.5 2 puff inhalation DAILY 90 days #4 01/15/24 mcg/actuation mist for inhalation grams (Stiolto Respimat) Allergies Allergy/AdvReac Type Severity Reaction Status Date / Time ibuprofen Allergy Severe Swelling Verified 12/25/23 11:30 of Lip/Tongue/Throat [facility] Disclaimer: The information contained in this section may have been updated after the patient was seen, as this information can be updated by other users. Medical History Squamous cell carcinoma Right lower lobe lung mass Smoking greater than 30 pack years Dyspnea on exertion Bronchogenic lung cancer Cancer Surgical History History of lung biopsy History of ear, nose, and throat (ENT) surgery History of cholecystectomy Family History Other No significant family history Social History Smoking Status: Former smoker tobacco type: cigarettes packs per day: 1 second hand exposure: No alcohol intake: never substance use type: denies use current occupational status: disabled Travel in the last 8 weeks: None household members: none housing: house current occupational exposures/hazards: No caffeine: Yes Other Medical History Have you received the Flu Vaccine for this season: Yes Have you received the Pneumonia Vaccine: Yes ROS Obtained: Yes Systems reviewed as appropriate & no additional complaints except as documented Per HPI Physical Exam General General appearance: alert and in no apparent distress Comment: Chronically ill-appearing but nontoxic, not in extremis Head Head exam: atraumatic and normocephalic Eye Eye exam: Present PERRL and EOMI ENT ENT exam: Present mucous membranes moist Neck Neck exam: Present normal inspection, full ROM and trachea midline Chest Chest inspection: Present symmetric chest wall rise Respiratory Respiratory exam: Present normal lung sounds bilaterally; Absent respiratory distress, wheezes or stridor Cardiovascular Cardiovascular exam: Present regular rate and normal rhythm Abdominal Exam Abdominal exam: Present soft; Absent distention, tenderness, guarding or rebound Extremities Exam Extremities exam: Present full ROM; Absent edema or calf tenderness Back Exam Back exam: Present vertebral tenderness (Midline vertebral tenderness in multiple areas of the spine) Neurological Exam Neurological exam: Present alert, oriented X3 and CN II-XII intact; Absent motor sensory deficit (NIH 0, strength out of 5 in all extremities, no sensory deficits) Psychiatric Psychiatric exam: Present normal affect and normal mood Skin Skin exam: Present warm, dry and other (Stage II decubitus ulcer left hip) Medical Decision Making Medical Records Medical records reviewed: Yes I reviewed the patient's medical records. Screening: Per USPSTF and CDC recommendations, given the prevalence of disease in our region, it is our hospital?s policy to screen for HIV and viral Hepatitis for all patients aged 18 and over and those with ongoing risk factors. MR Comment: Previous CTs from the beginning of August demonstrate the patient has large right lower lobe mass extending into the chest wall and appears to extend into the spine Syed Inquiry Pt receiving controlled substance: No Vital Signs: 09/03/24 23:05 09/03/24 23:33 09/04/24 00:00 Temperature 98.4 F Temperature Source Oral Pulse Rate 68 67 Pulse Rate [Right Brachial] 80 Respiratory Rate 20 Blood Pressure 118/50 L 131/59 L Blood Pressure [Right Arm] 129/55 L Blood Pressure Mean [Right Arm] 79 Blood Pressure Source [Right Arm] Automatic Cuff Blood Pressure Position Blood Pressure Position [Right Arm] Sitting 02 Sat by Pulse Oximetry 100 88 L 97 Oxygen Delivery Method Room Air Oxygen Flow Rate (LPM) 09/04/24 01:53 Temperature Temperature Source Pulse Rate 69 Pulse Rate [Right Brachial] Respiratory Rate 16 Blood Pressure 106/46 L Blood Pressure [Right Arm] Blood Pressure Mean [Right Arm] Blood Pressure Source [Right Arm] Blood Pressure Position Supine Blood Pressure Position [Right Arm] 02 Sat by Pulse Oximetry 97 Oxygen Delivery Method Nasal Cannula Oxygen Flow Rate (LPM) 2 Lab Data Lab Results 09/03/24 23:12: VBG pH 7.40, VBG pCO2 48.3, VBG pO2 28.9, VBG HCO3 29.3, VBG Total CO2 30.8 H, VBG O2 Saturation 55.1, VBG Base Excess 4.5 H, VBG Lactic Acid 3.0 H 09/03/24 23:21: WBC 17.2 H, RBC 3.12 L, Hgb 10.2 L, Hct 32.6 L, MCV 104.5 H, MCH 32.7 H, MCHC 31.3 L, RDW 16.4, Plt Count 544 H, MPV 10.2, Neut % (Auto) 84.9 H, Lymph % (Auto) 8.9 L, [place] % (Auto) 5.0, Eos % (Auto) 0.1, Baso % (Auto) 0.3, Neut # (Auto) 14.6 H, Lymph # (Auto) 1.5, [place] # (Auto) 0.9, Eos # (Auto) 0.0, Baso # (Auto) 0.1, Total Counted 100, Neutrophils % (Manual) 88 H, Lymphocytes % (Manual) 11, Monocytes % (Manual) 1 L, Platelet Estimate Normal, Macrocytosis 1+, PT 11.1, INR 1.01, Sodium 135 L, Potassium 4.9, Chloride 97 L, Carbon Dioxide 34 H, Anion Gap 8.9, BUN 42 H, Creatinine 1.10 H, Estimated Creat Clear 43, Estimated GFR 49 L, Est GFR ( Amer) 59, Glucose 132 H, Calcium 9.2, Magnesium 1.6, Total Bilirubin 0.7, AST 41 H, ALT 22, Alkaline Phosphatase 122, Troponin I < 0.01, Total Protein 7.7, Albumin 3.6, Globulin 4.1 H, Albumin/Globulin Ratio 0.9 L, Lipase 41 09/03/24 23:29: SARS-CoV-2 (PCR) Not detected, Influenza A Untype (PCR) Not detected, Influenza Type B (PCR) Not detected 09/03/24 23:31: Urine Color Yellow, Urine Appearance Slightly cloudy, Urine pH 6.0, Ur Specific [place] 1.020, Urine Protein Trace, Urine Glucose (UA) Negative, Urine Ketones Negative, Urine Blood Trace-i, Urine Nitrate Negative, Urine Bilirubin Negative, Urine Urobilinogen 1.0, Ur Leukocyte Esterase Negative, Urine RBC 5-10, Urine WBC 10-20, Ur Squamous Epith Cells 20-50, Urine Bacteria 4+, Urine Yeast 1+ 09/04/24 00:05: Lactate 2.2 H, Ammonia < 9 L 09/03/24 23:21 09/03/24 23:21 Orders (Tests/Meds): ED MEDICATIONS Generic Name Dose Route Start Last Admin Trade Name Freq PRN Reason Stop Dose Admin Piperacillin Sod/Tazobactam 100 mls @ 200 mls/hr 09/04/24 00:00 09/04/24 00:44 Sod 4.5 gm/ Sodium Chloride IV 09/14/24 00:00 200 mls/hr Q8H OC Administration Vancomycin HCl 1,000 mg/ 250 mls @ 125 mls/hr 09/04/24 00:15 09/04/24 00:30 Sodium Chloride IV 09/04/24 02:14 125 mls/hr ONCE ONE Administration Lactated Ringer's 1,000 mls @ 150 mls/hr 09/04/24 02:15 Lactated Ringer's 1000 Ml Bag IV 10/04/24 02:14 .Q6H40M OC Miscellaneous 1 each 09/04/24 00:00 Vancomycin Consult Request NOTAPPLIC 10/04/24 00:00 [facility] Discontinued Medications Generic Name Dose Route Start Last Admin Trade Name Freq PRN Reason Stop Dose Admin Lactated Ringer's 1,000 mls @ 999 mls/hr 09/03/24 23:12 09/03/24 23:28 Lactated Ringer's 1000 Ml Bag IV 09/04/24 00:12 999 mls/hr .Q1H1M ONE Administration Iopamidol 70 ml 09/04/24 00:24 09/04/24 00:25 Iopamidol-370 (76%);100ml Bottle IV 09/04/24 00:25 70 ml ONCE ONE Administration Morphine Sulfate 4 mg 09/03/24 23:45 09/03/24 23:56 Morphine 4mg/Ml Syringe IV 09/03/24 23:46 4 mg ONCE ONE Administration Ondansetron HCl 4 mg 09/03/24 23:12 09/03/24 23:57 Ondansetron 4mg/2ml Vial IV 09/03/24 23:13 4 mg ONCE ONE Administration Sodium Chloride 50 ml 09/04/24 00:24 09/04/24 00:25 0.9 % Sodium Chloride 50 Ml Vial IV 09/04/24 00:25 50 ml ONCE ONE Administration Sodium Chloride 10 ml 09/04/24 00:24 09/04/24 00:25 Sodium Chloride 0.9% 10ml Syr (Rad Only) IV 09/04/24 00:25 10 ml ONCE ONE Administration ORDERS Category Date Time Status CT abdomen pelvis w con Stat Cat Scan 09/03/24 23:[address] angio chest PE protocol Stat Cat Scan 09/03/24 23:[address] head/brain wo con Stat Cat Scan 09/03/24 23:13 Completed Ammonia Stat Lab 09/03/24 00:05 Completed Complete Blood Count Auto Diff Stat Lab 09/03/24 23:21 Completed Comprehensive Metabolic Panel Stat Lab 09/03/24 23:21 Completed HIV Combo Routine Lab 09/03/24 23:21 Received Hepatitis C Ab Qual. W/ RFX Routine Lab 09/03/24 23:21 Received Lactic Acid Stat Lab 09/03/24 00:05 Completed Lipase Stat Lab 09/03/24 23:21 Completed Magnesium Stat Lab 09/03/24 23:21 Completed Prothrombin Time INR Stat Lab 09/03/24 23:21 Completed Rapid PCR Covid and Flu A/B Stat Lab 09/03/24 23:29 Completed Troponin I Q3H Lab 09/04/24 02:15 Ordered Troponin I Q3H Lab 09/04/24 05:15 Ordered Troponin I Stat Lab 09/03/24 23:21 Completed Urinalysis and Microscopic Stat Lab 09/03/24 23:31 Completed Blood Culture Stat Micro 09/04/24 00:05 Received Urine Culture Stat Micro 09/03/24 23:31 Received VBG [Venous Blood Gas] Stat RT 09/03/24 23:12 Completed ECG Request Stat Y 09/03/24 23:13 Ordered Medical Decision Narrative: In summary, this 74-year-old female with comorbidities described in the HPI which increase her overall morbidity, and are not at goal therapy presents to the emergency department today with generalized weakness. On initial evaluation patient is hemodynamically stable, afebrile, she is a GCS 15, NIH 0, lungs clear bilaterally, patient saturating in the mid to upper 90s on 2 L nasal cannula, abdominal exam benign, patient has tenderness throughout the back which is consistent with her known metastatic cancer, she also has decubitus ulcer on the left hip which was previously known, normal neuroexam. Differential diagnosis includes but is not limited to advancing cancer including metastasis to the brain or other organs, also considered ACS, PE, viral syndrome, urinary tract infection, electrolyte abnormality, dehydration, pneumonia, bowel obstruction,. Based on these concerns, I ordered broad workup including serum labs, cardiac workup, CT imaging. ECG personally interpreted demonstrates sinus rhythm, rate 80, normal axis, normal AK and QTc, no STEMI. Patient received IV fluids, Zofran initially for treatment. She then requested pain medication and morphine was administered. Labs personally reviewed demonstrate leukocytosis WBC 17.2, anemia hemoglobin 10.2, thrombocythemia, VBG with normal pH but lactic is elevated on VBG at 3.0, lactic on chemistry is 2.2. Patient has evidence of prerenal azotemia with the elevated lactic is receiving IV fluids. Her ammonia is normal, troponin undetectable, UA was a cath urine sample and is positive for WBCs and significant bacteria though she is nitrate negative. Will treat for UTI. Since patient has elevated white count, hypoxia with EMS, generalized weakness, evidence of UTI, I am treating her with broad-spectrum antibiotics. I do not believe she requires a full sepsis bolus since she is hemodynamically stable. CT head personally interpreted does not demonstrate acute intracranial abnormality, no bleed, midline shift, no mass. CTAP personally interpreted does not demonstrate large PE, no pneumonia, patient has large mass in the right lower lobe extending into the chest wall. I do not appreciate acute intra-abdominal pathology on my personal interpretation of CT abdomen pelvis. See radiology reads for final interpretations. On reassessment patient continues to rest comfortably. I discussed results with patient and daughter. Patient still wishes to pursue comfort/quality of life and not aggressive cancer treatment at this time. I believe this is reasonable. With this in mind, I offered admission to the patient and family for pain management, treatment of UTI, and likely PT/OT evaluation. Also possibly palliative/hospice evaluation while inpatient. They are agreeable to this plan. I discussed this case with the hospitalist including patient's wishes. Patient graciously accepted for admission to the hospitalist service. Critical Care Critical Care Time Critical Care Time: No
[2024-09-03 23:41] LABS: Lipase 41 U/L (23-300)
[2024-09-03 23:41] LABS: Appearance,Urine Slightly Cloudy (Clear)
[2024-09-03 23:42] LABS: Anion Gap 8.9 mEq/L (5-15); Blood Urea Nitrogen 42 mg/dl (7-17); Carbon Dioxide 34 mmol/L (22.0-30.0); Chloride 97 mmol/L (98-107); Creatinine Clearance Estimated 43 mL/min (50-200); Magnesium 1.6 mg/dl (1.6-2.3); Potassium 4.9 mmoL/L (3.5-5.1); Sodium 135 mmol/L (136-145)
[2024-09-03 23:43] LABS: Alanine Aminotransferase 22 U/L (12-78); Albumin Level 3.6 g/dl (3.5-5.0); Albumin/Globulin Ratio 0.9 (1.1-1.8); Alkaline Phosphatase 122 U/L (38-126); Aspartate Amino Transferase 41 U/L (14-36); Bilirubin,Total 0.7 mg/dl (0.2-1.3); Calcium 9.2 mg/dl (8.4-10.2); Estimated Glomerular Filt Rate 49 ml/min (>60); GFR (African American) 59 ML/MIN (>60); Globulin 4.1 g/dL (1.3-3.2); Glucose 132 mg/dl (74-100); Total Protein,Serum 7.7 g/dl (6.3-8.2)
[2024-09-03 23:56] LABS: Troponin I < 0.01 ng/ml (0.00-0.034)
[2024-09-03] MEDS: MORPHINE 4MG/ML SYRINGE 4 MG IV (23:56)
[2024-09-03] MEDS: ONDANSETRON 4MG/2ML VIAL 4 MG IV (23:57)
[2024-09-04] VITALS (22 sets, daily range): BP systolic 82–133; BP diastolic 32–59; PULSE 59–88; RESP 13–19; TEMP 36.4–36.9; O2SAT 91–100; BMI 20.4; BMI 20.5
--- NOTE | 2024-09-04 00:06 | PC.NURSE ---
1st set of blood cultures drawn and sent to lab
--- NOTE | 2024-09-04 00:06 | PC.NURSE ---
Pt to CT scan via stretcher
[2024-09-04 00:12] LABS: Squamous Epithelial Cell,Urine 20-50 #/hpf (0-5)
[2024-09-04 00:13] LABS: Bacteria,Urine 4+ /lpf; Yeast,Urine 1+ /lpf
[2024-09-04 00:23] LABS: Lactic Acid 2.2 mmol/L (0.7-2.1)
[2024-09-04 00:25] LABS: Lymphocytes % 11 % (10-50); Macrocytosis 1+; Monocytes % 1 % (2-9); Neutrophils % 88 % (42-76); Platelet Estimate Normal; Total Cells Counted 100
[2024-09-04] MEDS: 0.9 % SODIUM CHLORIDE 50 ML VIAL IV (00:25)
[2024-09-04] MEDS: SODIUM CHLORIDE 0.9% 10ML SYR (RAD ONLY) 10 ML IV (00:25)
[2024-09-04] MEDS: IOPAMIDOL-370 (76%);100ML BOTTLE 70 ML IV (00:25)
[2024-09-04] MEDS: VANCOMYCIN HCL 1,000 MG in 0.9 % SODIUM CHLORIDE 250 ML 125 MG IV (00:30)
--- NOTE | 2024-09-04 00:32 | PC.NURSE ---
vanc initiated after 2nd set of blood culture drawn
[2024-09-04] MEDS: PIPERACILLIN/TAZO 4.5 GM in 0.9 % SODIUM CHLORIDE 100 ML IV (00:44)
[2024-09-04 01:56] LABS: Ammonia < 9 umol/L (9-30)
--- NOTE | 2024-09-04 02:21 | PC.NURSE ---
Report given to Reba RN on the floor
--- NOTE | 2024-09-04 02:34 | P.HP_ITS ---
<Statement entered by Edd Jerome MD - 09/09/24 22:57> Personally evaluated patient and agree with plan of care as outlined by the IP ATTORNEY. History of Present Illness *Admission Date: 09/04/24 *Reason for visit:: Weakness *History of present illness: This is a 74-year-old female who has a past medical history for squamous cell carcinoma, right lower lobe lung mass, former smoker, and dyspnea exertion presents with a 2-day history of physical decline. Due to patient's symptoms, she presented to the emergency room for evaluation. While in the emergency room, CT scan of the head was negative for any acute intracranial process. CT scan of the chest revealed 8.5 x 7 x 5.5 cm soft tissue mass in the posterior medial right lower lobe. CT scan of the abdomen and pelvis revealed 8.5 cm soft tissue mass at the right lung base which extends posteriorly to the chest wall with erosion of the right 11th rib and probable invasion of the paraspinous musculature, hepatic cirrhosis with evidence of portal hypertension, atherosclerosis r disease, and diverticulosis of the colon. Moreover, patient appears to be dehydrated. As result of his findings, patient has been admitted for further management. During my evaluation of the patient, patient states that she normally is able to get around and take care of herself but over the last 48 hours she is experienced significant weakness. She has a known lung malignancy and has not sought treatment for the past 3 years. Reportedly, daughter states that hospice was going to present to her home residence for evaluation. On further discussion, it is not clear on if patient wants aggressive treatment or hospice. To be more specific, patient states she wanted hospice to come in and help her get well and then she would think about evaluation for her malignancy. I informed patient, the longer she waits for management the higher the probability of her malignancy worsening. Patient wants to think about treatment and hospice. I offered case management to assist. She is currently denying any c hest pain, lightheadedness, dizziness, fever, chills, rigors, nausea, vomiting, shortness of breath, dyspnea or diarrhea. Is worth mentioning that during her transportation to the emergency room she was hypoxic with room air saturations in the 80s. Additional pertinent vitals obtained include a white blood cell count of 17.2, red blood cell count 3.12, hemoglobin 10.2, hematocrit 32.6, platelet count 544, neutrophils 84.9%, sodium 135, chloride 97, bicarb of 34, BUN 42, creatinine 1.10, GFR 49, blood glucose 132, venous lactic acid 2.2, AST of 41, and urinalysis revealed 10-20 white blood cells/4+ bacteria. [facility] Disclaimer: The information contained in this section may have been updated after the patient was seen, as this information can be updated by other users. Medical History Squamous cell carcinoma Right lower lobe lung mass Smoking greater than 30 pack years Dyspnea on exertion Bronchogenic lung cancer Cancer Surgical History History of lung biopsy History of ear, nose, and throat (ENT) surgery History of cholecystectomy Family History Other No significant family history Social History Smoking Status: Former smoker tobacco type: cigarettes packs per day: 1 second hand exposure: No alcohol intake: never substance use type: denies use current occupational status: disabled Travel in the last 8 weeks: None household members: none housing: house current occupational exposures/hazards: No caffeine: Yes Other Medical History Have you received the Flu Vaccine for this season: Yes Have you received the Pneumonia Vaccine: Yes Review of Systems Review of Systems Review of systems:: pertinent systems reviewed and negative unless documented below Constitutional Constitutional: Reports fatigue, Reports poor appetite and Reports lethargy Eyes Eyes: Reports system reviewed and no additional complaints, except as documented ENT Ears, Nose, Mouth, and Throat: Reports system reviewed and no additional complaints, except as documented *Cardiovascular Cardiovascular: Reports system reviewed and no additional complaints, except as documented and Reports dyspnea *Respiratory Respiratory: Reports dyspnea *Gastrointestinal Gastrointestinal: Reports system reviewed and no additional complaints, except as documented *Genitourinary Genitourinary: Reports system reviewed and no additional complaints, except as documented *Musculoskeletal Musculoskeletal: Reports muscle weakness Integumentary/Breasts Skin/Breast: Reports system reviewed and no additional complaints, except as documented *Neurologic Neurologic: Reports system reviewed and no additional complaints, except as documented Psychiatric Psychiatric: Reports system reviewed and no additional complaints, except as documented Endocrine Endocrine: Reports fatigue Hematologic/Lymphatic Hematologic/Lymphatic: Reports system reviewed and no additional complaints, except as documented Allergic/Immunologic Allergic/Immunologic: Reports system reviewed and no additional complaints, except as documented Meds Home Medications and Allergies Home Medications ?Medication ?Instructions ?Recorded ?Confirmed ?Type atenolol 25 mg tablet 25 mg PO DAILY DAILY 06/27/19 12/25/23 History rosuvastatin 10 mg tablet 10 mg PO DAILY Cholesterol 06/27/19 12/25/23 History triamterene 37.5 37.5 cap PO DAILY BP 06/27/19 12/25/23 History mg-hydrochlorothiazide 25 mg capsule albuterol sulfate 90 mcg/actuation 2 inh inhalation QID PRN shortness 08/29/22 12/25/23 Rx aerosol inhaler of breath or wheezing 90 days #8.5 grams ipratropium 0.5 mg-albuterol 3 mg 3 ml inhalation QID PRN shortness 08/29/22 12/25/23 Rx (2.5 mg base)/3 mL nebulization of breath or wheezing 90 days #360 soln mL estradiol 0.01% (0.1 mg/gram) See Rx Instructions vaginal 12/25/23 12/25/23 Rx vaginal cream .COMPLEX #42.5 grams fluconazole 150 mg tablet See Rx Instructions .Route 12/25/23 12/25/23 Rx .COMPLEX #6 tabs tiotropium 2.5 mcg-olodaterol 2.5 2 puff inhalation DAILY 90 days #4 01/15/24 Rx mcg/actuation mist for inhalation grams (Stiolto Respimat) New Prescriptions to Start Prescriptions: Allergies Allergy/AdvReac Type Severity Reaction Status Date / Time ibuprofen Allergy Severe Swelling Verified 12/25/23 11:30 of Lip/Tongue/Throat Exam Data for Last 24 hours Vital signs and Labs for Last 24 Hours: Temp Pulse Resp BP Pulse Ox O2 Del Method O2 Flow Rate 98.3 F 69 14 106/46 L 97 Nasal Cannula 2 09/04/24 02:21 09/04/24 02:21 09/04/24 02:21 09/04/24 02:21 09/04/24 01:53 09/04/24 02:21 09/04/24 02:21 Laboratory Results - last 24 hr 09/03/24 23:12: VBG pH 7.40, VBG pCO2 48.3, VBG pO2 28.9, VBG HCO3 29.3, VBG Total CO2 30.8 H, VBG O2 Saturation 55.1, VBG Base Excess 4.5 H, VBG Lactic Acid 3.0 H 09/03/24 23:21: WBC 17.2 H, RBC 3.12 L, Hgb 10.2 L, Hct 32.6 L, MCV 104.5 H, MCH 32.7 H, MCHC 31.3 L, RDW 16.4, Plt Count 544 H, MPV 10.2, Neut % (Auto) 84.9 H, Lymph % (Auto) 8.9 L, [place] % (Auto) 5.0, Eos % (Auto) 0.1, Baso % (Auto) 0.3, Neut # (Auto) 14.6 H, Lymph # (Auto) 1.5, [place] # (Auto) 0.9, Eos # (Auto) 0.0, Baso # (Auto) 0.1, Total Counted 100, Neutrophils % (Manual) 88 H, Lymphocytes % (Manual) 11, Monocytes % (Manual) 1 L, Platelet Estimate Normal, Macrocytosis 1+, PT 11.1, INR 1.01, Sodium 135 L, Potassium 4.9, Chloride 97 L, Carbon Dioxide 34 H, Anion Gap 8.9, BUN 42 H, Creatinine 1.10 H, Estimated Creat Clear 43, Estimated GFR 49 L, Est GFR ( Amer) 59, Glucose 132 H, Calcium 9.2, Magnesium 1.6, Total Bilirubin 0.7, AST 41 H, ALT 22, Alkaline Phosphatase 122, Troponin I < 0.01, Total Protein 7.7, Albumin 3.6, Globulin 4.1 H, Albumin/Globulin Ratio 0.9 L, Lipase 41 09/03/24 23:29: SARS-CoV-2 (PCR) Not detected, Influenza A Untype (PCR) Not detected, Influenza Type B (PCR) Not detected 09/03/24 23:31: Urine Color Yellow, Urine Appearance Slightly cloudy, Urine pH 6.0, Ur Specific [place] 1.020, Urine Protein Trace, Urine Glucose (UA) Negative, Urine Ketones Negative, Urine Blood Trace-i, Urine Nitrate Negative, Urine Bilirubin Negative, Urine Urobilinogen 1.0, Ur Leukocyte Esterase Negative, Urine RBC 5-10, Urine WBC 10-20, Ur Squamous Epith Cells 20-50, Urine Bacteria 4+, Urine Yeast 1+ 09/04/24 00:05: Lactate 2.2 H, Ammonia < 9 L I & O for Last 24 hours: Intake & Output 09/01/24 09/02/24 09/03/24 09/04/24 23:59 23:59 23:59 23:59 Weight 58.967 kg Constitutional Constitutional: no acute distress, thin and cooperative *Routine HEENT Exam Head: Present normocephalic and atraumatic Eye: Present EOMI, PERRL and normal accommodation ENT: Present mucous membranes moist *Routine Neck Exam Neck: Present supple and full ROM *Routine Respiratory Exam Respiratory: Present diminished air movement *Routine Cardiovascular Exam Cardiovascular: Present RRR, Normal S1 and Normal S2 *Routine Abdominal Exam Abdominal: Present soft and normoactive bowel sounds *Routine Rectal Exam Rectal:: deferred *Routine Genitalia Exam Genitalia:: deferred *Routine Extremities Exam Extremities: Present full ROM, pulses intact and normal capillary refill Routine Back/Spine/Pelvis Exam Back/Spine: Present full ROM *Routine Skin Exam Skin: Present dry and warm *Routine Neurological Exam Neurological: Present alert, oriented X3, CN II-XII intact and moving all extremities Routine Psychiatric Exam Psychiatric: Present normal affect, normal thought process, cooperative, good insight and good judgment H&P: Result Impressions 74-year-old female who has known malignancy of the lungs presents with progressive generalized weakness. Patient currently is without any active treatment for her malignancy and is not sure if she went to pursue. Was found to have possible urinary tract infection and was mildly dehydrated. Assessment and Plan *Assessment and plan (1) Lung cancer: Status: Acute Qualifiers: Laterality: right Lung location: lower lobe of lung Qualified Code(s): C34.31 - Malignant neoplasm of lower lobe, right bronchus or lung Category: Medical Code(s): C34.90 - Malignant neoplasm of unspecified part of unspecified bronchus or lung (2) Acute hypoxic respiratory failure: Status: Acute Category: Medical Code(s): J96.01 - Acute respiratory failure with hypoxia (3) UTI (urinary tract infection): Status: Acute Qualifiers: Urinary tract infection type: site unspecified Hematuria presence: without hematuria Qualified Code(s): N39.0 - Urinary tract infection, site not specified Category: Medical Code(s): N39.0 - Urinary tract infection, site not specified (4) Leukocytosis: Status: Acute Qualifiers: Leukocytosis type: unspecified Qualified Code(s): D72.829 - Elevated white blood cell count, unspecified Category: Medical Code(s): D72.829 - Elevated white blood cell count, unspecified (5) Generalized weakness: Status: Acute Category: Medical Code(s): R53.1 - Weakness (6) Thrombocytosis: Status: Acute Category: Medical Code(s): D75.839 - Thrombocytosis, unspecified (7) Dehydration: Status: Acute Category: Medical Code(s): E86.0 - Dehydration (8) Lactic acidosis: Status: Acute Category: Medical Code(s): E87.20 - Acidosis, unspecified (9) Cirrhosis: Status: Acute Qualifiers: Hepatic cirrhosis type: unspecified hepatic cirrhosis Ascites presence: without ascites Qualified Code(s): K74.60 - Unspecified cirrhosis of liver Category: Medical Code(s): K74.60 - Unspecified cirrhosis of liver (10) Macrocytosis: Status: Acute Category: Medical Code(s): D75.89 - Other specified diseases of blood and blood-forming organs Plan Assessment: Lung cancer: Patient has 8.5 x 7 x 8.5 right lower lobe mass -Currently, patient is not clear if she wants to pursue treatment -This is obvious tumor no need to obtain biomarkers -Patient will need further discussion Acute hypoxic respiratory failure: Required nasal cannula -Supplemental oxygen to maintain oxygen saturation greater 94% -DuoNebs every 6 hours Urinary tract infection -1 g Rocephin IV daily -Will monitor culture and sensitivity -Once sensitivities known we will tailor antibiotics to the sensitivity posted Leukocytosis with left shift -Blood cultures x 2 -Peripheral smear Generalized weakness -Physical therapy -Occupational Therapy Thrombocytosis/dehydration -Normal saline at 125 mL an hour -Will monitor platelet count daily Lactic acidosis -Repeat venous lactic acid in the a.m. Cirrhosis: Seen on imaging -Will monitor patient does not appear to be decompensated Macrocytosis -Folate level -Vitamin B12 level Plan: Admit patient to the MedSur unit Up to chair twice daily SCDs to bilateral lower extremity Supplemental oxygen maintain oxygen saturation greater 94% It is not clear on if patient wants to pursue aggressive measures for malignancy. I highlighted the urgency of determining treatment options. Patient's daughter and patient wanted to wait and discuss in the a.m. Is not clear if patient wants hospice CBC/BMP daily 5000 units of heparin subcu 3 times daily 5 mg [place] p.o. every 4 hours as needed moderate pain 4 mg of morphine IV push every 4 hours as needed severe pain 4 mg Zofran IV push to 8 hours. Nausea vomiting Full code for now until CODE STATUS has been changed by family member or patient I will discuss this case with attending physician Dr. jerome and I look forward to more input
--- NOTE | 2024-09-04 02:35 | PC.NURSE ---
Patient arrived to floor via stretcher from ED at 02:34.
[2024-09-04] MEDS: 0.9 % SODIUM CHLORIDE 1000ML 1,000 ML 125 ML IV ×2 (02:45→17:25)
[2024-09-04 02:47] LABS: Troponin I 0.01 ng/ml (0.00-0.034)
[2024-09-04 03:32] LABS: Reflex Lactic Add Lactic Reflex
[2024-09-04 03:34] LABS: HIV Combo NEGATIVE (Negative)
[2024-09-04 03:43] LABS: Hepatitis C Ab Qual. W/ RFX NEGATIVE (Negative)
--- NOTE | 2024-09-04 03:44 | PC.WOUNDNOTE ---
Pictures above show a decubitus ulcer (no drainage noted upon inspection) presented on the patient's left hip. Picture above shows necrotic-like tissue on the outside of the patient's pinna (antihelix area).
--- NOTE | 2024-09-04 04:20 | PC.NURSE ---
Addendum entered by Reba Glaser RN 09/04/24 06:15: Morning labs + lactic routine were able to be collected this morning. Original Note: I attempted to draw a lactic tube for Lab per room server request due to previously attempted blood draw difficulties. One blood draw was attempted by me but I was unsuccessful. Patient requested after the first attempt to take a break from lab draws due to soreness in her arms + blown veins from sticks.
[2024-09-04] MEDS: HYDROCODONE/APAP 5/325 MG TABLET 1 TAB PO ×2 (05:50→19:00)
[2024-09-04 06:02] LABS: Lactic Acid 2.4 mmol/L (0.7-2.1)
[2024-09-04] MEDS: IPRATROPIUM/ALBUTEROL 3 ML NEB IH ×3 (06:10→18:43)
--- NOTE | 2024-09-04 08:02 | HMH.PHAINT1 ---
Pharmacy Intervention Comments: HOME MEDICATION LIST VERIFIED USING LIST FROM OUTPATIENT PHARMACY
[2024-09-04 09:15] LABS: Vitamin B12 762 pg/mL (239-931)
[2024-09-04 09:43] LABS: Folate 2.45 ng/mL
[2024-09-04] MEDS: CEFTRIAXONE SODIUM 1 GM in 0.9 % SODIUM CHLORIDE 50 ML IV (09:52)
[2024-09-04] MEDS: HEPARIN SODIUM 5,000 UNIT/ML VIAL 5000 UNIT SUBCUT ×3 (09:52→20:26)
[2024-09-04] MEDS: SODIUM CHLORIDE 0.9% 500ML BAG 500 ML IV (09:56)
[2024-09-04] MEDS: ACETAMINOPHEN 325MG TAB 650 MG PO (13:58)
[2024-09-04] MEDS: 0.9 % SODIUM CHLORIDE 500 ML 999 ML IV (13:58)
[2024-09-04 14:16] LABS: Alanine Aminotransferase 18 U/L (12-78); Albumin Level 2.7 g/dl (3.5-5.0); Albumin/Globulin Ratio 0.8 (1.1-1.8); Alkaline Phosphatase 114 U/L (38-126); Anion Gap 5.7 mEq/L (5-15); Aspartate Amino Transferase 30 U/L (14-36); Bilirubin,Total 0.3 mg/dl (0.2-1.3); Blood Urea Nitrogen 34 mg/dl (7-17); Carbon Dioxide 31 mmol/L (22.0-30.0); Chloride 103 mmol/L (98-107); Creatinine Clearance Estimated 31 mL/min (50-200); Estimated Glomerular Filt Rate 37 ml/min (>60); GFR (African American) 45 ML/MIN (>60); Globulin 3.2 g/dL (1.3-3.2); Glucose 128 mg/dl (74-100); Potassium 3.7 mmoL/L (3.5-5.1); Sodium 136 mmol/L (136-145); Total Protein,Serum 5.9 g/dl (6.3-8.2)
[2024-09-04 14:23] LABS: Lactic Acid 2.2 mmol/L (0.7-2.1)
--- NOTE | 2024-09-04 15:21 | EXP.EVENT.NO ---
Patient's hypotensive this morning, 80s over 30s. Responded well to 500 mL x 2 NS bolus to 124/56. Will plan to talk to the daughter about hospice tomorrow. Daughter was given a colonoscopy today. Continue treatment for UTI.
[2024-09-04] MEDS: FAMOTIDINE 20MG TABLET 40 MG PO (16:07)
[2024-09-04 17:09] LABS: Basophils % 0.3 % (0.1-2.0); Eosinophils # 0.1 K/mm3 (0.0-0.4); Eosinophils % 0.5 % (0.1-12.0); Lymphocytes # 1.7 K/mm3 (0.7-4.5); Lymphocytes % 11.9 % (10-50); Mean Corpuscular HGB Conc 31.1 g/dL (31.8-35.4); Mean Corpuscular Hemoglobin 32.8 pg (27.0-31.2); Mean Corpuscular Volume 105.5 fl (81-99); Mean Platelet Volume 9.7 fl (7.4-10.4); Monocytes # 0.9 K/mm3 (0.1-1.0); Monocytes % 6.3 % (1.7-9.3); Neutrophils # 11.4 K/mm3 (1.8-7.8); Neutrophils % 80.4 % (37.0-80.0); Platelet Count 380 K/mm3 (142-424); Red Blood Count 2.56 M/mm3 (4.20-5.40); Red Cell Distribution Width 16.4 % (11.5-17.5); White Blood Count 14.2 K/mm3 (4.8-10.8)
[2024-09-04 17:18] LABS: Hemoglobin 8.4 g/dL (12.2-16.2)
--- NOTE | 2024-09-04 17:39 | PC.NURSE ---
Pt BP has been significantly low this shift (see pt chart) since about 8am. MD was made aware and we have given two 500ml bolus of NS which only temporarily brings BP up. Pt has c/o pain in lower back today and tylenol was not effective, because of pts BP being low we could not give any stronger pain meds. Pt was offered to be turned and repositioned multiple times this shift but refused saying she could not lay on either side. Pt has been using bedside commode with assist x1. On 2L NC. This evening MD made decision to transfer pt to ICU on levophed drip for BP. Report was called to manuel. Family was made aware.
[2024-09-04] MEDS: NOREPINEPHRINE BITARTRATE/D5W 8 MG/250 ML PLAST..BAG 9.38 MG IV (17:40)
[2024-09-04 18:02] LABS: Reflex Lactic Add Lactic Reflex
[2024-09-04] MEDS: PIPERCILLIN/TAZO 3.375 GM in 0.9 % SODIUM CHLORIDE 50 ML IV (18:12)
[2024-09-04 18:49] LABS: Lactic Acid Follow Up (RFLX 1) 3.1 mmol/L (0.7-2.1)
[2024-09-04] MEDS: 0.9 % SODIUM CHLORIDE 1000ML 1,000 ML 100 ML IV (20:00)
[2024-09-04 20:19] LABS: Reflex Lactic (2 hrs) Add Lactic Reflex
[2024-09-04] MEDS: PANTOPRAZOLE 40MG TABLET 40 MG PO (20:26)
[2024-09-04 21:40] LABS: Lactic Acid Follow up (RFLX 2) 3.7 mmol/L (0.7-2.1)
--- NOTE | 2024-09-04 21:42 | PC.NURSE ---
lab called with critical lactic acid of 3.1. Provider aware.
[2024-09-04] MEDS: RINGERS SOLUTION,LACTATED 500 ML IV (21:46)
[2024-09-05] VITALS (51 sets, daily range): BP systolic 116–143; BP diastolic 48–71; PULSE 75–121; RESP 12–37; TEMP 36.7–36.9; O2SAT 75–100; BMI 21.9
[2024-09-05] MEDS: IPRATROPIUM/ALBUTEROL 3 ML NEB IH ×2 (00:32→06:27)
[2024-09-05] MEDS: PIPERCILLIN/TAZO 3.375 GM in 0.9 % SODIUM CHLORIDE 50 ML IV (01:01)
[2024-09-05] MEDS: 0.9 % SODIUM CHLORIDE 1000ML 1,000 ML 100 ML IV ×2 (04:42→14:17)
[2024-09-05 06:23] LABS: Basophils % 0.3 % (0.1-2.0); Eosinophils # 0.2 K/mm3 (0.0-0.4); Eosinophils % 1.1 % (0.1-12.0); Hematocrit 27.4 % (37.0-47.0); Hemoglobin 8.5 g/dL (12.2-16.2); Lymphocytes # 1.9 K/mm3 (0.7-4.5); Mean Corpuscular Hemoglobin 33.2 pg (27.0-31.2); Mean Platelet Volume 9.7 fl (7.4-10.4); Monocytes # 0.8 K/mm3 (0.1-1.0); Neutrophils # 10.3 K/mm3 (1.8-7.8); Platelet Count 369 K/mm3 (142-424); Red Blood Count 2.56 M/mm3 (4.20-5.40); Red Cell Distribution Width 16.5 % (11.5-17.5); White Blood Count 13.3 K/mm3 (4.8-10.8)
[2024-09-05] MEDS: HYDROCODONE/APAP 5/325 MG TABLET 1 TAB PO ×3 (06:51→16:26)
[2024-09-05 07:12] LABS: Anion Gap 8.8 mEq/L (5-15); Blood Urea Nitrogen 28 mg/dl (7-17); Calcium 7.8 mg/dl (8.4-10.2); Carbon Dioxide 24 mmol/L (22.0-30.0); Chloride 105 mmol/L (98-107); Creatinine Clearance Estimated 36 mL/min (50-200); Estimated Glomerular Filt Rate 40 ml/min (>60); GFR (African American) 49 ML/MIN (>60); Glucose 90 mg/dl (74-100); Potassium 3.8 mmoL/L (3.5-5.1); Sodium 134 mmol/L (136-145)
[2024-09-05 08:23] LABS: Lactate Dehydrogenase 236 U/L (313-618)
[2024-09-05] MEDS: HEPARIN SODIUM 5,000 UNIT/ML VIAL 5000 UNIT SUBCUT ×2 (08:26→14:15)
[2024-09-05] MEDS: PIPERACILLIN/TAZO 2.25 GM in 0.9 % SODIUM CHLORIDE 50 ML IV ×2 (08:27→14:15)
[2024-09-05 08:37] LABS: Uric Acid 6.7 mg/dl (2.5-6.2)
--- NOTE | 2024-09-05 08:51 | HMH.PTEV ---
Physical Therapy Evaluation Rehab PT IP Evaluation Start: 09/04/24 02:29 Freq: ONCE Status: Active Protocol: Document 09/05/24 08:44 ERIBERTO (Rec: 09/05/24 08:51 ERIBERTO [id number]) Subjective/History History History Per H&P, This is a 74-year- old female who has a past medical history for squamous cell carcinoma, right lower lobe lung mass, former smoker, and dyspnea exertion presents with a 2-day history of physical decline. Due to patient's symptoms, she presented to the emergency room for evaluation. While in the emergency room, CT scan of the head was negative for any acute intracranial process . CT scan of the chest revealed 8.5 x 7 x 5.5 cm soft tissue mass in the posterior medial right lower lobe. CT scan of the abdomen and pelvis revealed 8.5 cm soft tissue mass at the right lung base which extends posteriorly to the chest wall with erosion of the right 11th rib and probable invasion of the paraspinous musculature, hepatic cirrhosis with evidence of portal hypertension, atherosclerosis r disease, and diverticulosis of the colon. Moreover, patient appears to be dehydrated. As result of his findings, patient has been admitted for further management. Subjective Subjective Pt is oriented x3. She presents with NC 2L. She reports that she prior to her hospital admission, she lived in a house by herself. She reports that she has no stairs to enter and no stairs inside the home. She reports that at baseline, she was completely independent with all mobility, ADLs, dressing and bathing. She reports that she did not us a walker, cane or any other sort of AD. She also reports that her daughter is planning on coming to stay with her and help out when she is able to go home. New diagnosis of cancer in past 12 No months? Rehab PT IP Eval Objective Appearance Patient Behavior Appropriate,Patient Baseline Patient Orientation Person,Place,Time Difficulty following instructions none Speech Pattern Clear,Patient Baseline Ambulation Patient Able to Ambulate Yes Ambulation Observation IP General Gait Pattern Observation Shuffling Step Ambulation Distance (feet) 3 Ambulation Assistive Device None Ambulation Ability Moderate x 1 (50% assist) Balance Ability to Arise Able, uses arms to help Sitting Balance Leans or slides in chair Standing Balance Steady, wide stance Dynamic Sitting Balance Ability Fair Dynamic Standing Balance Ability Poor Transfers Bed Transfer Ability Minimal x 1 (25% assist) Chair Transfer Ability Moderate x 1 (50% assist) Sit to Stand Bed Transfer Ability Moderate x 1 (50% assist) Rehab PT IP prob,goals,plan Problems Date of Evaluation: 09/05/24 PT IP Problems Bed Mobility,Transfers,Gait, Balance,Self care,Safety Rehab Potential Rehab Potential Fair Equipment Needs Assistive Devices None / NA Plan PT Intervention Plan Bed Mobility,Transfers,Gait, Balance,Self care,Safety, Therapeutic Exercise PT Plan Frequency BID Duration LOS Discharge Goals Bed Transfer Ability Supervision/Stand by Sit to Stand Chair Transfer Ability Supervision/Stand by Ambulation Assistive Device None Ambulation Distance (feet) 50 Discharge Plan PT Discharge Plan PT is recommending home with 24 hour assistance from family and home health at this time. If family is unable to provide 24 hour assistance, then the patient would better benefit from placement for further therapy, upon discharge. Skilled PT is indicated for this pt during her acute stay to prevent further decline and promote a return to her PLOF. Eval Complexity Eval Charge Codes 84316 - Moderate Complexity PHYSICIAN CERTIFICATION: I certify the specified therapy services for Tracy Ortiz are required, authorized, and reviewed every 30 days.
--- NOTE | 2024-09-05 10:04 | SW/DCPLANNER ---
Addendum entered by Adriana Mayen RN 09/05/24 15:16: Patient's daughter plans to supervisor winding department an oxygen tank from [facility] for transport. Addendum entered by Luisa Sandra 09/05/24 13:28: Val w/ [facility] is willing to accept this patient ICF level of care. Patient will discharge today. Per daughter she will follow up w/ Hospice once patient settles at [facility]. Addendum entered by Luisa Sandra 09/05/24 11:47: Patient and daughter are agreeable for information to be faxed to [facility] for a LT Medicaid bed. Patient prefers to wait for Hospice services until placement is established. Addendum entered by Luisa Sandra 09/05/24 10:26: Andressa w/ [facility] stated they are not in network w/ patient's insurance. I will follow up w/ patient and daughter regarding other facilities. Original Note: I spoke w/ this patient and her daughter regarding plans once medically stable for discharge. PT/OT evaluated patient this AM and suggested home w/ 24-7 care and home health services or SNF level of care. Daughter stated that patient lives at home alone and wants to pursue Hospice services but will need therapy prior to returning home. Patient is agreeable for information to be faxed to [facility] at this time. I also further discussed SNF vs ICF w/ Hospice vs home w/ Hospice. I will continue to follow up w/ patient, family and MD. Discharge date is unknown at this time.
--- NOTE | 2024-09-05 10:07 | HMH.OTEV ---
OT Inpatient Evaluation Rehab OT IP Evaluation Start: 09/04/24 02:29 Freq: ONCE Status: Active Protocol: Document 09/05/24 10:01 ROSELYN (Rec: 09/05/24 10:07 ROSELYN [id number]) Rehab OT IP Assessment Subjective History This is a 74-year-old female who has a past medical history for squamous cell carcinoma, right lower lobe lung mass, former smoker, and dyspnea exertion presents with a 2-day history of physical decline. Due to patient's symptoms, she presented to the emergency room for evaluation. While in the emergency room, CT scan of the head was negative for any acute intracranial process . CT scan of the chest revealed 8.5 x 7 x 5.5 cm soft tissue mass in the posterior medial right lower lobe. CT scan of the abdomen and pelvis revealed 8.5 cm soft tissue mass at the right lung base which extends posteriorly to the chest wall with erosion of the right 11th rib and probable invasion of the paraspinous musculature, hepatic cirrhosis with evidence of portal hypertension, atherosclerosis r disease, and diverticulosis of the colon. Moreover, patient appears to be dehydrated. As result of his findings, patient has been admitted for further management. During my evaluation of the patient, patient states that she normally is able to get around and take care of herself but over the last 48 hours she is experienced significant weakness. She has a known lung malignancy and has not sought treatment for the past 3 years. Reportedly, daughter states that hospice was going to present to her home residence for evaluation. On further discussion, it is not clear on if patient wants aggressive treatment or hospice. To be more specific, patient states she wanted hospice to come in and help her get well and then she would think about evaluation for her malignancy. I informed patient, the longer she waits for management the higher the probability of her malignancy worsening. Patient wants to think about treatment and hospice. I offered case management to assist. She is currently denying any chest pain, lightheadedness, dizziness, fever, chills, rigors, nausea, vomiting, shortness of breath , dyspnea or diarrhea. Is worth mentioning that during her transportation to the emergency room she was hypoxic with room air saturations in the 80s. Additional pertinent vitals obtained include a white blood cell count of 17.2 , red blood cell count 3.12, hemoglobin 10.2, hematocrit 32 .6, platelet count 544, neutrophils 84.9%, sodium 135, chloride 97, bicarb of 34, BUN 42, creatinine 1.10, GFR 49, blood glucose 132, venous lactic acid 2.2, AST of 41, and urinalysis revealed 10-20 white blood cells/4+ bacteria. Patient lives alone in 1 story home with 1 AMBER. Daughter lives near by to assist with transportation, cooking and cleaning. Independent with ADLs and fx'l mobility prior to hospitalization. Subjective I need to use the restroom. Instructed Patient on proper hand and foot placement to complete bed mobility from supine->sit @ EOB->SPT requiring Min A. Instructed Patient on safety awareness to complete SPT to BSC requiring Min A. Patient continent of bladder and bowel mgt tr this date. Patient required SBA for clothing mgt tr and toilet hygiene. Assisted Patient back to bed with needs met at end of session with Min A. Objective Patient Orientation Person,Place,Name,Birthday Right Upper Extremity Gross ROM WFL Left Upper Extremity Gross ROM WFL Bed Mobility bed mobility - supine/sit Assist Level Minimal x 1 (25% assist) Transfer Training Sit/Stand Transfer Assist Level Minimal x 1 (25% assist) Chair Transfer Ability Minimal x 1 (25% assist) Chair Transfer Technique Sit to/from Ambulatory Chair Transfer Assistive Devices None Performing Toilet Hygiene Ability Standby Assistance Overall Commode/Toilet Transfer Ability Minimal Assistance Commode/Toilet Transfer Technique Sit to/from Ambulatory Rehab OT IP prob,goals,plan Problems Date of Evaluation: 09/05/24 OT IP Problems Bed Mobility,Transfers,Balance ,Self care,Safety Rehab Potential Rehab Potential Good Equipment Needs Assistive Devices Rolling / Wheeled Walker Plan OT intervention Plan Bed Mobility,Transfers,Balance ,Self care,Safety,Therapeutic Exercise OT Plan Frequency Daily Duration LOS Discharge Goals Bed Mobility Ability Assistance x1 Sit to Stand Chair Transfer Ability Contact Guard/Hand Hold Chair Transfer Ability Contact Guard/Hand Hold Chair Transfer Technique Sit to/from Ambulatory Chair Transfer Assistive Devices Rolling Walker Discharge Plan OT Discharge Plan Recommend Patient return home with 24/7 care with family and services. If family is unable to provide 24/7 care, recommend placement for nursing and rehab. Eval Complexity Eval Charge Codes 07807 - Low Complexity PHYSICIAN CERTIFICATION: I certify the specified therapy services for Tracy K Ortiz are required, authorized, and reviewed every 30 days.
--- NOTE | 2024-09-05 13:32 | P.DS_ITS ---
General Admission date:: 09/04/24 HPI HPI HPI: This is a 74-year-old female who has a past medical history for squamous cell carcinoma, right lower lobe lung mass, former smoker, and dyspnea exertion presents with a 2-day history of physical decline. Due to patient's symptoms, she presented to the emergency room for evaluation. While in the emergency room, CT scan of the head was negative for any acute intracranial process. CT scan of the chest revealed 8.5 x 7 x 5.5 cm soft tissue mass in the posterior medial right lower lobe. CT scan of the abdomen and pelvis revealed 8.5 cm soft tissue mass at the right lung base which extends posteriorly to the chest wall with erosion of the right 11th rib and probable invasion of the paraspinous musculature, hepatic cirrhosis with evidence of portal hypertension, atherosclerosis r disease, and diverticulosis of the colon. Moreover, patient appears to be dehydrated. As result of his findings, patient has been admitted for further management. During my evaluation of the patient, patient states that she normally is able to get around and take care of herself but over the last 48 hours she is experienced significant weakness. She has a known lung malignancy and has not sought treatment for the past 3 years. Reportedly, daughter states that hospice was going to present to her home residence for evaluation. On further discussion, it is not clear on if patient wants aggressive treatment or hospice. To be more specific, patient states she wanted hospice to come in and help her get well and then she would think about evaluation for her malignancy. I informed patient, the longer she waits for management the higher the probability of her malignancy worsening. Patient wants to think about treatment and hospice. I offered case management to assist. She is currently denying any chest pain, lightheadedness, dizziness, fever, chills, rigors, nausea, vomiting, shortness of breath, dyspnea or diarrhea. Is worth mentioning that during her transportation to the emergency room she was hypoxic with room air saturations in the 80s. Additional pertinent vitals obtained include a white blood cell count of 17.2, red blood cell count 3.12, hemoglobin 10.2, hematocrit 32.6, platelet count 544, neutrophils 84.9%, sodium 135, chloride 97, bicarb of 34, BUN 42, creatinine 1.10, GFR 49, blood glucose 132, venous lactic acid 2.2, AST of 41, and urinalysis revealed 10-20 white blood cells/4+ bacteria. Hospital Course Hospital Course Hospital Course: Tracy Ortiz is a 74-year-old female with a history of metastatic lung cancer that patient has not wanted workup for presented with weakness and admitted for UTI, weakness. #Lung cancer #Physical deconditioning ? Patient has 8.5 x 7 x 8.5 right lower lobe mass, with mets to posterior chest wall and, 11th rib, T11-12 vertebrae. ? Patient does not want workup for this cancer and has elected for home hospice, but at this time is too weak to go home and live by herself. ? [facility] has graciously accepted patient as a long-term placement. #UTI ? UA grossly abnormal, discharged with levofloxacin for 5 more days. ? Will follow-up on urine cultures. #Hypertension ? Hold home medications due to soft pressures. Exam Data for Last 24 hours Vital signs and Labs for Last 24 Hours: Temp Pulse Resp BP Pulse Ox O2 Del Method O2 Flow Rate 98.2 F 75 22 118/55 L 92 L Nasal Cannula 5 09/05/24 12:16 09/05/24 12:16 09/05/24 12:16 09/05/24 12:00 09/05/24 12:16 09/05/24 09:00 09/05/24 09:00 Laboratory Results - last 24 hr 09/04/24 14:00: Sodium 136, Potassium 3.7 D, Chloride 103, Carbon Dioxide 31 H, Anion Gap 5.7, BUN 34 H, Creatinine 1.40 H D, Estimated Creat Clear 31, Estimated GFR 37 L, Est GFR ( Amer) 45 L D, Glucose 128 H, Lactate 2.2 H, Calcium 8.0 L, Total Bilirubin 0.3, AST 30 D, ALT 18, Alkaline Phosphatase 114, Total Protein 5.9 L, Albumin 2.7 L D, Globulin 3.2, Albumin/Globulin Ratio 0.8 L 09/04/24 16:57: WBC 14.2 H, RBC 2.56 L, Hgb 8.4 L D, Hct 27.0 L, MCV 105.5 H, MCH 32.8 H, MCHC 31.1 L, RDW 16.4, Plt Count 380 D, MPV 9.7, Neut % (Auto) 80.4 H, Lymph % (Auto) 11.9, [place] % (Auto) 6.3, Eos % (Auto) 0.5, Baso % (Auto) 0.3, Neut # (Auto) 11.4 H, Lymph # (Auto) 1.7, [place] # (Auto) 0.9, Eos # (Auto) 0.1, Baso # (Auto) 0.0 09/04/24 18:12: Lactate 3.1 H 09/04/24 20:52: Lactate 3.7 H 09/05/24 05:44: WBC 13.3 H, RBC 2.56 L, Hgb 8.5 L, Hct 27.4 L, MCV 107.0 H, MCH 33.2 H, MCHC 31.0 L, RDW 16.5, Plt Count 369, MPV 9.7, Neut % (Auto) 78.0, Lymph % (Auto) 14.0, [place] % (Auto) 6.0, Eos % (Auto) 1.1, Baso % (Auto) 0.3, Neut # (Auto) 10.3 H, Lymph # (Auto) 1.9, [place] # (Auto) 0.8, Eos # (Auto) 0.2, Baso # (Auto) 0.0, Sodium 134 L, Potassium 3.8, Chloride 105, Carbon Dioxide 24, Anion Gap 8.8, BUN 28 H, Creatinine 1.30 H, Estimated Creat Clear 36, Estimated GFR 40 L, Est GFR ( Amer) 49 L, Glucose 90 D, Uric Acid 6.7 H, Calcium 7.8 L, Lactate Dehydrogenase 236 L I & O for Last 24 hours: Intake & Output 09/02/24 09/03/24 09/04/24 09/05/24 23:59 23:59 23:59 23:59 Intake Total 1255.002 / 2386.002 1940 194 Output Total 275 / 275 400 / 400 Balance 980.002 / 2111.002 1541 / 1541 Weight 58.967 kg 54.544 kg 58.423 kg Microbiology Reports for the Last 24 Hours: Microbiology 09/04/24 00:05 Blood Blood Culture - Preliminary NO GROWTH AFTER 24 HOURS 09/04/24 00:40 Blood Blood Culture - Preliminary NO GROWTH AFTER 24 HOURS Constitutional Constitutional: no acute distress *Routine HEENT Exam Head: Present normocephalic Eye: Present EOMI and PERRL ENT: Present mucous membranes moist *Routine Neck Exam Neck: Present supple; Absent lymphadenopathy *Routine Respiratory Exam Respiratory: Present CTA bilaterally *Routine Cardiovascular Exam Cardiovascular: Present RRR *Routine Abdominal Exam Abdominal: Present soft and normoactive bowel sounds; Absent tenderness *Routine Extremities Exam Extremities: Absent cyanosis, clubbing or edema *Routine Skin Exam Skin: Present warm; Absent rash *Routine Neurological Exam Neurological: Present alert and oriented X3 Results Data Completed and Pending Labs on day of discharge: Labs from last 24 hours 09/05/24 09/04/24 09/04/24 05:44 20:52 18:12 WBC 13.3 H RBC 2.56 L Hgb 8.5 L Hct 27.4 L MCV 107.0 H MCH 33.2 H MCHC 31.0 L RDW 16.5 Plt Count 369 MPV 9.7 Neut % (Auto) 78.0 Lymph % (Auto) 14.0 [place] % (Auto) 6.0 Eos % (Auto) 1.1 Baso % (Auto) 0.3 Neut # (Auto) 10.3 H Lymph # (Auto) 1.9 [place] # (Auto) 0.8 Eos # (Auto) 0.2 Baso # (Auto) 0.0 Sodium 134 L Potassium 3.8 Chloride 105 Carbon Dioxide 24 Anion Gap 8.8 BUN 28 H Creatinine 1.30 H Estimated Creat Clear 36 Estimated GFR 40 L Est GFR ( Amer) 49 L Glucose 90 D Lactate 3.7 H 3.1 H Uric Acid 6.7 H Calcium 7.8 L Total Bilirubin AST ALT Alkaline Phosphatase Lactate Dehydrogenase 236 L Total Protein Albumin Globulin Albumin/Globulin Ratio 09/04/24 09/04/24 16:57 14:00 WBC 14.2 H RBC 2.56 L Hgb 8.4 L D Hct 27.0 L MCV 105.5 H MCH 32.8 H MCHC 31.1 L RDW 16.4 Plt Count 380 D MPV 9.7 Neut % (Auto) 80.4 H Lymph % (Auto) 11.9 [place] % (Auto) 6.3 Eos % (Auto) 0.5 Baso % (Auto) 0.3 Neut # (Auto) 11.4 H Lymph # (Auto) 1.7 [place] # (Auto) 0.9 Eos # (Auto) 0.1 Baso # (Auto) 0.0 Sodium 136 Potassium 3.7 D Chloride 103 Carbon Dioxide 31 H Anion Gap 5.7 BUN 34 H Creatinine 1.40 H D Estimated Creat Clear 31 Estimated GFR 37 L Est GFR ( Amer) 45 L D Glucose 128 H Lactate 2.2 H Uric Acid Calcium 8.0 L Total Bilirubin 0.3 AST 30 D ALT 18 Alkaline Phosphatase 114 Lactate Dehydrogenase Total Protein 5.9 L Albumin 2.7 L D Globulin 3.2 Albumin/Globulin Ratio 0.8 L Preliminary micro results at discharge 09/04/24 00:05 Blood Culture - Preliminary Blood NO GROWTH AFTER 24 HOURS 09/04/24 00:40 Blood Culture - Preliminary Blood NO GROWTH AFTER 24 HOURS DS: Diagnosis Discharge Diagnosis (1) Lung cancer: Status: Acute Code(s): C34.90 - Malignant neoplasm of unspecified part of unspecified bronchus or lung Qualifiers: Laterality: right Lung location: lower lobe of lung Qualified Code(s): C34.31 - Malignant neoplasm of lower lobe, right bronchus or lung (2) Acute hypoxic respiratory failure: Status: Acute Code(s): J96.01 - Acute respiratory failure with hypoxia (3) UTI (urinary tract infection): Status: Acute Code(s): N39.0 - Urinary tract infection, site not specified Qualifiers: Urinary tract infection type: site unspecified Hematuria presence: without hematuria Qualified Code(s): N39.0 - Urinary tract infection, site not specified (4) Leukocytosis: Status: Acute Code(s): D72.829 - Elevated white blood cell count, unspecified Qualifiers: Leukocytosis type: unspecified Qualified Code(s): D72.829 - Elevated white blood cell count, unspecified (5) Generalized weakness: Status: Acute Code(s): R53.1 - Weakness (6) Thrombocytosis: Status: Acute Code(s): D75.839 - Thrombocytosis, unspecified (7) Dehydration: Status: Acute Code(s): E86.0 - Dehydration (8) Lactic acidosis: Status: Acute Code(s): E87.20 - Acidosis, unspecified (9) Cirrhosis: Status: Acute Code(s): K74.60 - Unspecified cirrhosis of liver Qualifiers: Hepatic cirrhosis type: unspecified hepatic cirrhosis Ascites presence: without ascites Qualified Code(s): K74.60 - Unspecified cirrhosis of liver (10) Macrocytosis: Status: Acute Code(s): D75.89 - Other specified diseases of blood and blood-forming organs Meds Home Medications and Allergies Home Medications ?Medication ?Instructions ?Recorded ?Confirmed ?Type rosuvastatin 10 mg tablet 10 mg PO DAILY 06/27/19 09/04/24 History hydrocodone 5 mg-acetaminophen 325 1 tab PO Q6H PRN Moderate Pain 09/04/24 09/04/24 History mg tablet (Scale Score 5-6) levofloxacin 750 mg tablet 750 mg PO Q48H 5 days #3 tabs 09/05/24 Rx pantoprazole 40 mg tablet,delayed 40 mg PO HS 30 days #30 tabs 09/05/24 Rx release New Prescriptions to Start Prescriptions: levofloxacin Edd Fernandes pantoprazole Edd Fernandes Allergies Allergy/AdvReac Type Severity Reaction Status Date / Time ibuprofen Allergy Severe Swelling Verified 12/25/23 11:30 of Lip/Tongue/Throat Discharge Plan Disposition Patient Disposition: [facility] Condition: Fair Discharge Order Discharge Orders: Discharge Order (Routine); Ordered 09/05/24 Ordered By: Edd Fernandes Follow up Plan Prescriptions/Medication Reconciliation: New pantoprazole 40 mg Tablet,Delayed Release (Dr/Ec) 40 mg PO HS 30 Days Qty: 30 0RF levofloxacin 750 mg tablet 750 mg PO Q48H 5 Days Qty: 3 0RF Continued rosuvastatin 10 mg tablet 10 mg PO DAILY hydrocodone-acetaminophen 5-325 mg tablet 1 tab PO Q6H PRN (Reason: Moderate Pain (Scale Score 5-6)) Discontinued atenolol 25 mg tablet 25 mg PO DAILY triamterene-hydrochlorothiazid 37.5-25 mg capsule 1 cap PO DAILY methocarbamol 750 mg tablet 750 mg PO QID Problem Reconciliation Problems Reviewed?: Yes Patient Discharge Instructions Patient Instructions: DI for Muscle Weakness Print Language: Nepalese Providers Primary Care Provider: Provider,Referral Admit Provider: Ger Patel Attending Provider: Ger Patel
--- NOTE | 2024-09-05 15:35 | PC.NURSE ---
called [facility] and gave report to LEELA Sainz. During report she asked about the patient getting miralax to help move her bowels and needed a script for her pain medicine. Notified Dr. Fernandes of these things who reported he ordered miralax and sent the script for the patients pain medicine.
[2024-09-05] MEDS: POLYETHYLENE GLYCOL 3350 17 GM PACKET PO (16:23)
--- NOTE | 2024-09-05 16:58 | PC.NURSE ---
This nurse called Emeli at [facility] and informed her of the last administration of her norco and that she received the miralax
[2024-09-06 05:40] LABS: Peripheral Smear Review Scanned Result
== END 2024-09-05 16:58 ==
LOC: ER 09-04 02:09 → 2ND 09-04 02:18 → ICU 09-04 17:26
PROVIDERS: Nurse Practitioner Family; Student in an Organized Health Care Education/Training Program; Admitting Provider Internal Medicine Adolescent Medicine; Emergency Provider Emergency Medicine; Visit Provider Internal Medicine Adolescent Medicine
DX: N39.0 Urinary tract infection, site not specified (principal); C34.31 Malignant neoplasm of lower lobe, right bronchus or lung; J96.01 Acute respiratory failure with hypoxia; D72.829 Elevated white blood cell count, unspecified; R53.1 Weakness; D75.839 Thrombocytosis, unspecified; E86.0 Dehydration; E87.20 Acidosis, unspecified; K74.60 Unspecified cirrhosis of liver; D75.89 Other specified diseases of blood and blood-forming organs
CPT/HCPCS: 36415; 70450; 71275; 74177; 80048; 80053; 81001; 82140; 82607; 82746; 82803; 83605; 83615; 83690; 83735; 84484; 84550; 85007; 85025; 85610; 86803; 87040; 87086; 87389; 87636; 93005; 94640; 94761; 97162; 97165; 97530; 99285; G0378; J0696; J1644; J2270; J2405; J2543; J3370; J7030; J7050; J7120; J7620; Q9967

== ENCOUNTER 2024-09-23 17:41 | Inpatient (IN) | payer MEDICARE, OTHER, SELFPAY ==
[2024-09-23] VITALS (10 sets, daily range): BP systolic 114–157; BP diastolic 51–77; PULSE 115–140; RESP 17–23; TEMP 36.8–37.1; O2SAT 93–99; BMI 23.1; BMI 25.3
--- NOTE | 2024-09-23 17:57 | ECG_ITS ---
APPROVED REPORT Exam: Resting ECG HR:140 bpm ECG Measurements Heart Rate 140 AXES IN 108 P 65 QRSd 90 QRS 59 QT 281 T 32 QTc 362 Conclusion SINUS TACHYCARDIA WITH SHORT IN INTERVAL, POSSIBLE ATRIAL FLUTTER LOW QRS VOLTAGE IN EXTREMITY LEADS [QRS DEFLECTION < 0.5 mV IN LIMB LEADS] NONSPECIFIC T-WAVE ABNORMALITY ABNORMAL RHYTHM ECG UNCONFIRMED REPORT Electronically signed by : Ger Johnson, 09/23/2024 23:39:21
[2024-09-23 18:02] LABS: Lactate Venous 1.1 mmol/L (0.4-2.0); VBG Base Excess 4.5 mmol/L (-2.4-2.3); VBG HCO3 31.2 mmol/L (23-30); VBG PH 7.28 mmol/L (7.31-7.41); VBG PO2 34.3 mmol/L (28-40); VBG Total CO2 33.3 mmol/L (23-27)
[2024-09-23 18:04] LABS: VBG PCO2 67.7 mmol/L (35-51)
--- NOTE | 2024-09-23 18:15 | PC.NURSE ---
KASSIDY BRADLEY AT [facility] SPEAKING WITH PT FAMILY
--- NOTE | 2024-09-23 18:19 | ED_ITS ---
<Statement entered by Marisa Johnson MD - 09/23/24 23:36> I was consulted by the CHAVEZ, and we discussed the complexity of the problems being addressed. I approved the treatment and management plan for this patient's care in the emergency department, thus performing a substantive portion of the medical decision making. Marisa Johnson MD, JENNIFER, FACEP Discharge Plan Disposition Chief Complaint: Shortness of Breath/Dyspnea Discharge ED Provider: Marisa Johnson General Adult HPI General Chief complaint: Shortness of Breath/Dyspnea Stated complaint: Shortness of Air Time Seen by Provider: 09/23/24 18:10 Mode of Arrival: EMS Source of Information: Patient, EMS and Medical Record Description of Symptoms (Recalled from ER Triage Doc. by RN): pt is from [place], of lung cancer with mets, upon ems arrival she was 66% on baseline 3L nasal cannula, ems gave her 125 mg solumedrol, halfway gave duoneb, ativan, and pain pill before patient left to come to ER. pt was placed on ems cpap at 10 L and came up to 93%. History of Present Illness HPI narrative: Patient presents from [facility] with altered mental status and hypoxemia. Patient has a history of right lung mass that is not being treated. She was recently admitted to our facility for acute hypoxemic respiratory failure from September 04, 2024 to 2024 and ultimately discharged to [facility] with supplemental O2. In the interval since patient has done fairly well at the halfway however over the last 2 days she has had increasing confusion and decreased responsiveness. She was found to have an oxygen saturation today of 66% on her baseline 3 L by nasal cannula and hence EMS was called. On arrival here patient is not responsive to painful stimuli. Patient's daughter is at the bedside who is her power of personal injury attorney and reports that patient does have a living will and is a DNR/DNI. There is no known precipitating event other than that they heard rattling when she was breathing. They deny chest pain fever chills hemoptysis hematochezia melena hematemesis aspiration. Related Data Home Medications ?Medication ?Instructions ?Recorded ?Confirmed rosuvastatin 10 mg tablet 10 mg PO DAILY 06/27/19 09/04/24 Previous Rx's ?Medication ?Instructions ?Recorded hydrocodone 5 mg-acetaminophen 325 1 tab PO Q6H PRN Moderate Pain 09/05/24 mg tablet (Scale Score 5-6) 7 days #30 tabs levofloxacin 750 mg tablet 750 mg PO Q48H 5 days #3 tabs 09/05/24 pantoprazole 40 mg tablet,delayed 40 mg PO HS 30 days #30 tabs 09/05/24 release Allergies Allergy/AdvReac Type Severity Reaction Status Date / Time ibuprofen Allergy Severe Swelling Verified 12/25/23 11:30 of Lip/Tongue/Throat [facility] Disclaimer: The information contained in this section may have been updated after the patient was seen, as this information can be updated by other users. Medical History Squamous cell carcinoma Right lower lobe lung mass Smoking greater than 30 pack years Dyspnea on exertion Bronchogenic lung cancer Cancer Surgical History History of lung biopsy History of ear, nose, and throat (ENT) surgery History of cholecystectomy Family History Other No significant family history Social History Smoking Status: Former smoker tobacco type: cigarettes packs per day: 1 second hand exposure: No alcohol intake: never substance use type: denies use current occupational status: disabled Travel in the last 8 weeks: None household members: none housing: house current occupational exposures/hazards: No caffeine: Yes Have you lived/traveled outside [place] in past 30 days?: No Contact w/someone who lives/traveled outside US past 30 days?: No Exposure to someone with infectious disease in past 14 days?: No Do you have a fever (greater than 100.4 F or 38 C)?: No Have you tested positive for COVID-19: No Exposed to someone with COVID-19 in past 14 days?: No Do you have a sore throat?: No Do you have a cough?: No Do you have any weakness?: No Do you have any diarrhea?: No Are you experiencing any unusual bleeding?: No Do you have any muscle aches/pain?: No Do you have any abdominal pain?: No Are you experiencing loss of taste or smell?: No Other Medical History Have you received the Flu Vaccine for this season: No Have you received the Pneumonia Vaccine: No ROS Obtained: Yes Systems reviewed as appropriate & no additional complaints except as documented Physical Exam General General appearance: alert and in no apparent distress Respiratory Respiratory exam: Absent normal lung sounds bilaterally (Patient has significantly diminished breath sounds in the right lung solorzano and slightly in the left at the bases with rhonchi and rails) Cardiovascular Cardiovascular exam: Present tachycardia Neurological Exam Neurological exam: Absent alert or oriented X3 Medical Decision Making Medical Records Medical records reviewed: Yes I reviewed the patient's medical records. Screening: Per USPSTF and CDC recommendations, given the prevalence of disease in our region, it is our hospital?s policy to screen for HIV and viral Hepatitis for all patients aged 18 and over and those with ongoing risk factors. Syed Inquiry Pt receiving controlled substance: No Vital Signs: 09/23/24 17:56 09/23/24 18:04 09/23/24 18:07 Temperature 98.8 F Temperature Source Axillary Pulse Rate 130 H 140 H Pulse Rate [Left Radial] 132 H Respiratory Rate 23 21 17 Blood Pressure 157/77 H 147/66 H Blood Pressure [Right Arm] 147/66 H Blood Pressure Mean Blood Pressure Mean [Right Arm] 93 Blood Pressure Position 02 Sat by Pulse Oximetry 99 97 99 Oxygen Delivery Method CPAP CPAP CPAP Oxygen Flow Rate (LPM) 10 Fraction of Inspired Oxygen 09/23/24 18:24 09/23/24 18:24 09/23/24 18:30 Temperature Temperature Source Pulse Rate 115 H Pulse Rate [Left Radial] Respiratory Rate 18 Blood Pressure 114/51 L Blood Pressure [Right Arm] Blood Pressure Mean 72 Blood Pressure Mean [Right Arm] Blood Pressure Position 02 Sat by Pulse Oximetry 96 98 Oxygen Delivery Method BiPAP Oxygen Flow Rate (LPM) Fraction of Inspired Oxygen 40 40 09/23/24 18:36 09/23/24 18:36 09/23/24 20:59 Temperature 98.3 F Temperature Source Oral Pulse Rate 126 H 123 H 117 H Pulse Rate [Left Radial] Respiratory Rate 20 Blood Pressure 129/62 Blood Pressure [Right Arm] Blood Pressure Mean Blood Pressure Mean [Right Arm] Blood Pressure Position Sitting 02 Sat by Pulse Oximetry Oxygen Delivery Method BiPAP Oxygen Flow Rate (LPM) Fraction of Inspired Oxygen Lab Data Lab results reviewed: Yes I reviewed the patient's lab results. Lab Results 09/23/24 18:00: VBG pH 7.28 L, VBG pCO2 67.7 H, VBG pO2 34.3, VBG HCO3 31.2 H, V BG Total CO2 33.3 H, VBG O2 Saturation 64.0, VBG Base Excess 4.5 H, VBG Lactic Acid 1.1 09/23/24 18:03: WBC 23.0 H*, RBC 2.80 L, Hgb 8.9 L, Hct 30.3 L, MCV 108.2 H, MCH 31.8 H, MCHC 29.4 L, RDW 16.4, Plt Count 533 H, MPV 10.2, Neut % (Auto) 79.8, Lymph % (Auto) 11.8, Ogle % (Auto) 5.9, Eos % (Auto) 1.4, Baso % (Auto) 0.3, N eut # (Auto) 18.3 H, Lymph # (Auto) 2.7, Ogle # (Auto) 1.4 H, Eos # (Auto) 0.3, Baso # (Auto) 0.1, Sodium 140, Potassium 4.1, Chloride 101, Carbon Dioxide 36 H, Anion Gap 7.1, BUN 21 H, Creatinine 1.10 H, Estimated Creat Clear 45, Estimated GFR 49 L, Est GFR ( Amer) 59, Glucose 148 H, Calcium 8.4, Magnesium 1.5 L , Total Bilirubin 0.2, AST 42 H, ALT 19, Alkaline Phosphatase 233 H, NT-Pro-B Natriuret Pep 5010 H, Total Protein 7.0, Albumin 3.1 L, Globulin 3.9 H, A lbumin/Globulin Ratio 0.8 L 09/23/24 19:45: Specimen Source Left radial, O2 % 40, ABG pH 7.33 L, ABG pCO2 59.3 H, ABG pO2 66.2 L, ABG HCO3 30.6 H, ABG Total CO2 32.5 H, ABG O2 Saturation 92, ABG Base Excess 4.7 H, Samir Test Acceptable 09/23/24 18:03 09/23/24 18:03 Orders (Tests/Meds): ED MEDICATIONS Generic Name Dose Route Start Last Admin Trade Name Freq PRN Reason Stop Dose Admin Hydromorphone HCl 1 mg 09/23/24 20:36 Hydromorphone 2mg/Ml Syringe IV 10/23/24 20:35 Q3HP PRN Severe Pain (7-10) Sodium Chloride 1,640 mls @ 820 mls/hr 09/23/24 19:58 Sod Chlor 0.9% 1000ml Bag 30 ml/kg infuse over 2 hr (1640 ml) 09/23/24 21:57 IV .Q2H ONE Iopamidol 70 ml 09/23/24 20:13 09/23/24 20:14 Iopamidol-370 (76%);100ml Bottle IV 09/23/24 20:14 70 ml ONCE ONE Administration Lorazepam 1 mg 09/23/24 20:36 Lorazepam 2mg/Ml Vial IV 10/23/24 20:35 Q4HP PRN Agitation Miscellaneous 1 each 09/23/24 19:15 09/23/24 20:29 Vancomycin Consult Request NOTAPPLIC 10/23/24 19:14 1 each CONSULT PHARMACY OC Administration Ondansetron HCl 4 mg 09/23/24 20:36 Ondansetron 4mg/2ml Vial IV 10/23/24 20:35 Q6HP PRN Nausea Sodium Chloride 3 ml 09/23/24 19:00 Sodium Chloride 3% 15ml Neb 10/23/24 18:59 ONCE PRN INDUCE SPUTUM COLLECTION Sodium Chloride 50 ml 09/23/24 20:13 09/23/24 20:14 0.9 % Sodium Chloride 50 Ml Vial IV 09/23/24 20:14 50 ml ONCE ONE Administration Sodium Chloride 10 ml 09/23/24 20:13 09/23/24 20:14 Sodium Chloride 0.9% 10ml Syr (Rad Only) IV 09/23/24 20:14 10 ml ONCE ONE Administration Discontinued Medications Generic Name Dose Route Start Last Admin Trade Name Freq PRN Reason Stop Dose Admin Albuterol/Ipratropium 3 ml 09/23/24 18:20 09/23/24 18:36 Ipratropium/Albuterol 3 Ml Neb 09/23/24 18:21 3 ml ONCE ONE Administration Dexamethasone Sodium Phosphate 10 mg 09/23/24 18:20 09/23/24 18:32 Dexamethasone 4mg/Ml 5ml Mdv IV 09/23/24 18:21 10 mg ONCE ONE Administration Piperacillin Sod/Tazobactam 50 mls @ 100 mls/hr 09/23/24 19:15 09/23/24 21:08 Sod 3.375 gm/ Sodium Chloride IV 09/23/24 19:44 100 mls/hr ONCE ONE Administration Vancomycin/PEG/NADA/Lysine/Water 1.5 gm in 300 mls @ 150 mls/hr 09/23/24 19:15 09/23/24 20:29 Vancomycin 1.5gm/300ml (Peg) Premix IV 09/23/24 21:14 150 mls/hr ONCE ONE Administration Magnesium Sulfate 2 gm in 50 mls @ 50 mls/hr 09/23/24 19:34 09/23/24 21:08 Magnesium Sulfate 2gm/50ml Premix IV 09/23/24 20:33 50 mls/hr ONCE ONE Administration ORDERS Category Date Time Status CT angio chest PE protocol Stat Cat Scan 09/23/24 18:21 Taken BNP [NT Pro Brain Natriuretic Pep.] Stat Lab 09/23/24 18:03 Completed CBC w/Auto Diff [Complete Blood Count Auto Diff] Stat Lab 09/23/24 18:03 Results CMP [Comprehensive Metabolic Panel] Stat Lab 09/23/24 18:03 Completed Full Resp Panel w/COVID ([facility]) Routine Lab 09/23/24 18:03 Received Magnesium Stat Lab 09/23/24 18:03 Completed Blood Culture Stat Micro 09/23/24 18:04 Received Sputum Culture & Gram Stain Stat Micro 09/23/24 19:00 Ordered ABG [Arterial Blood Gas] Timed RT 09/23/24 19:45 Completed VBG [Venous Blood Gas] Stat RT 09/23/24 18:00 Completed Tissue Perfus/Sepsis Re-Eval Sepsis Re-Evaluation Performed: Yes Date Performed: 09/23/24 Time Performed: 19:05 Medical Decision Narrative: In summary patient is a 74-year-old female who presents to the emergency department for evaluation of altered mental status and acute on chronic hypoxemic respiratory failure. Patient is normotensive on arrival at 157/77 tachycardic at 130 breathing 23 times a minute satting at 99% on EMS CPAP upon arrival, and afebrile at 98.8. Physical exam is remarkable for an unwell appearing 74-year-old female who is currently obtunded. Nelson Coma Score is a 1 ? 1 ? 1 initially. Breath sounds are significantly diminished in the right lung solorzano with rhonchi and rails and similar sounds in the left but breath sounds heard to the bases pupils equal round reactive to light. Differential diagnosis includes pneumonia versus PE versus worsening lung cancer versus lung collapse. Initial workup will be conducted with hematologic labs respiratory panel CT PE protocol urinalysis VBG. Initial interventions include BiPAP after VBG revealed a pH of 7.28 and a pCO2 of 67.7. Initial workup reviewed by me shows a white count of 23,000 hemoglobin hematocrit 8.9 and 30.3 with an absolute neutrophil count of 18.3 repeat ABG shows a pH of 7.33 pCO2 of 59.3 CO2 of 36 creatinine 1.1 GFR 49 magnesium 1.5 and alk phos of 233 and NT proBNP of 5010. My informal interpretation of her CT scan shows bilateral pleural effusions right greater than left with collapse of the right lower lobe prior to radiology read. Upon repeat evaluation patient has actually improved her mentation and now is appropriate with a Nelson Coma Score 15 after an hour on BiPAP. Given this we had a shared decision-making discussion with Dr. Johnson myself and the hospitalist at the bedside with the patient's POA her daughter regarding her workup and findings. Patient's daughter is adamant that the patient would not want any aggressive care and is not interested in advanced or aggressive intervention. They are agreeable to admission at our facility for hospice evaluation those of care being comfort and palliation. Subsequently I had interact discussion with the hospitalist regarding patient presentation GOODE and findings as well as patient management and she will be admitted for further evaluation and care. Critical Care Critical Care Time Critical Care Time: Yes Attestation: On 09/23/24, the high probability of a clinically significant, sudden or life threatening deterioration of the following system(s) required my full and direct attention, intervention and personal management. The time I documented below is in addition to time spent performing reported procedures but includes the following listed in this critical care notation. Total Time Total Critical Care Time: 60
--- NOTE | 2024-09-23 18:21 | CT_ITS ---
PROCEDURE INFORMATION: Exam: CTA Chest With Contrast Exam date and time: 09/23/2024 8:05 PM Age: 74 years old Clinical indication: Shortness of breath; Additional info: Acute on chronic respiratory failure TECHNIQUE: Imaging protocol: Computed tomographic angiography of the chest with contrast. Exam focused on the arteries. 3D rendering (Not supervised by radiologist): MIP and/or 3D reconstructed images were created by the technologist. Radiation optimization: All CT scans at this facility use at least one of these dose optimization techniques: automated exposure control; mA and/or kV adjustment per patient size (includes targeted exams where dose is matched to clinical indication); or iterative reconstruction. Contrast material: ISOVUE; Contrast volume: 70 ml; Contrast route: INTRAVENOUS (IV); COMPARISON: CT ANGIO CHEST PE PROTOCOL 09/04/2024 12:18 AM FINDINGS: Pulmonary arteries: No CT evidence of aortic dissection or acute pulmonary embolus Aorta: Unremarkable. No aortic aneurysm. No aortic dissection. Lungs: Partial atelectasis left lower lobe. Near complete atelectasis right lower lobe Pleural spaces: New Large right pleural effusion. New Small left pleural effusion. Large necrotic mass of the posterior right chest shows interval progression. Estimated dimensions on current examination are 64 x 99 x 89 mm. The mass extends from the right lower lobe, through the parietal pleura and into the soft tissues posterior to the chest causing central destruction of the right 11th rib Heart: Unremarkable. No cardiomegaly. No pericardial effusion. Coronary arteries: Calcified coronary arteries Lymph nodes: Unremarkable. No enlarged lymph nodes. Liver: Cirrhotic liver Bones/joints: Unremarkable. No acute fracture. Soft tissues: Unremarkable. IMPRESSION: 1. Interval progression of previously documented large right lung mass extending through the posterior right thoracic wall with destruction of right posterior 11th rib. 6.4 x 9.9 x 8.9 cm. 2. New large right pleural effusion and small left pleural effusion 3. No CT evidence of acute pulmonary embolus or aortic dissection.
[2024-09-23 18:28] LABS: Adenovirus,PCR Not Detected (NotDetected); Basophils # 0.1 K/mm3 (0-0.2); Basophils % 0.3 % (0.1-2.0); Bordetella Pertussis Not Detected (NotDetected); Chlamydophila Pneumoniae, PCR Not Detected (NotDetected); Coronavirus 19, PCR Not Detected (NotDetected); Coronavirus 229E Not Detected (NotDetected); Coronavirus NL63 Not Detected (NotDetected); Coronavirus OC43 Not Detected (NotDetected); Coronovirus HKU1,PCR Not Detected (NotDetected); Eosinophils # 0.3 K/mm3 (0.0-0.4); Eosinophils % 1.4 % (0.1-12.0); Hematocrit 30.3 % (37.0-47.0); Hemoglobin 8.9 g/dL (12.2-16.2); Human Metapneumovirus Not Detected (NotDetected); Influenza A, PCR Not Detected (NotDetected); Influenza AH1, 2009 Not Detected (NotDetected); Influenza AH1, PCR Not Detected (NotDetected); Influenza AH3,PCR Not Detected (NotDetected); Influenza B, PCR Not Detected (NotDetected); Lymphocytes # 2.7 K/mm3 (0.7-4.5); Lymphocytes % 11.8 % (10-50); Mean Corpuscular HGB Conc 29.4 g/dL (31.8-35.4); Mean Corpuscular Hemoglobin 31.8 pg (27.0-31.2); Mean Corpuscular Volume 108.2 fl (81-99); Mean Platelet Volume 10.2 fl (7.4-10.4); Monocytes # 1.4 K/mm3 (0.1-1.0); Monocytes % 5.9 % (1.7-9.3); Mycoplasma Pneumoniae, PCR Not Detected (NotDetected); Neutrophils # 18.3 K/mm3 (1.8-7.8); Neutrophils % 79.8 % (37.0-80.0); Parainfluenza 1, PCR Not Detected (NotDetected); Parainfluenza 2, PCR Not Detected (NotDetected); Parainfluenza 3, PCR Not Detected (NotDetected); Parainfluenza 4, PCR Not Detected (NotDetected); Platelet Count 533 K/mm3 (142-424); Red Cell Distribution Width 16.4 % (11.5-17.5); Respiratory Syncytial Virus Not Detected (NotDetected); Rhinovirus/Enterovirus Not Detected (NotDetected)
[2024-09-23 18:32] LABS: Albumin Level 3.1 g/dl (3.5-5.0); Chloride 101 mmol/L (98-107); Potassium 4.1 mmoL/L (3.5-5.1); Sodium 140 mmol/L (136-145)
[2024-09-23] MEDS: DEXAMETHASONE 4MG/ML 5ML MDV 10 MG IV (18:32)
[2024-09-23 18:34] LABS: Blood Urea Nitrogen 21 mg/dl (7-17); Creatinine Clearance Estimated 45 mL/min (50-200); Estimated Glomerular Filt Rate 49 ml/min (>60); GFR (African American) 59 ML/MIN (>60)
[2024-09-23 18:35] LABS: Alanine Aminotransferase 19 U/L (12-78); Albumin/Globulin Ratio 0.8 (1.1-1.8); Alkaline Phosphatase 233 U/L (38-126); Anion Gap 7.1 mEq/L (5-15); Aspartate Amino Transferase 42 U/L (14-36); Bilirubin,Total 0.2 mg/dl (0.2-1.3); Calcium 8.4 mg/dl (8.4-10.2); Carbon Dioxide 36 mmol/L (22.0-30.0); Globulin 3.9 g/dL (1.3-3.2); Glucose 148 mg/dl (74-100); Magnesium 1.5 mg/dl (1.6-2.3)
[2024-09-23] MEDS: IPRATROPIUM/ALBUTEROL 3 ML NEB IH (18:36)
--- NOTE | 2024-09-23 18:40 | PC.NURSE ---
RT BIPAP settings are at 14/, Rate 18, 40%
[2024-09-23 18:44] LABS: MANUAL DIFFERENTIAL MANUAL DIFFERENTIAL (MANUAL DIFF); NT Pro Brain Natriuretic Pep. 5010 pg/mL (0-125)
[2024-09-23 19:45] LABS: ABG Base Excess 4.7 mmol/L (-2.4-2.3); ABG HCO3 30.6 mmhg (22.0-26.0); ABG Oxygen Saturation 92 % (90-100); ABG PH 7.33 mmol/L (7.35-7.45); ABG PO2 66.2 mmhg (80-100); ABG TCO2 32.5 mmhg (23-27)
[2024-09-23 20:01] LABS: Allen's Test Acceptable; Oxygen 40 %; Pressure Support BIPAP 14/7; Source Left Radial
[2024-09-23 20:02] LABS: ABG PCO2 59.3 mmhg (35.0-45.0)
--- NOTE | 2024-09-23 20:04 | HMH.ITSTN ---
Per Lori patient is incompetent to make decision for exam. patients POA signed consent form and was okay to give CT contrast and do exam
[2024-09-23] MEDS: 0.9 % SODIUM CHLORIDE 50 ML VIAL IV (20:14)
[2024-09-23] MEDS: IOPAMIDOL-370 (76%);100ML BOTTLE 70 ML IV (20:14)
[2024-09-23] MEDS: SODIUM CHLORIDE 0.9% 10ML SYR (RAD ONLY) 10 ML IV (20:14)
[2024-09-23] MEDS: VANCOMYCIN CONSULT REQUEST 1 EACH NOTAPPLIC (20:29)
[2024-09-23] MEDS: VANCOMYCIN/WATER FOR INJ (PEG) 1.5 GM/300 ML PIGGYBACK IV (20:29)
--- NOTE | 2024-09-23 20:48 | P.HP_ITS ---
<Statement entered by Ger Patel MD - 09/24/24 18:23> Rounded on patient after nurse practitioner. Personally examined and interviewed patient. Agree with exam findings and care plan as documented. Hospice consulted this morning. Discussed case with hospice at bedside, will observe overnight. Continue with pain and anxiety regimen as ordered. No further labs or IV antibiotics or fluids. Comfort feeds as tolerated. Case management assisting with care. History of Present Illness *Admission Date: 09/23/24 *Reason for visit:: Respiratory failure secondary to pulmonary infiltrate related to cancer *History of present illness: This 74-year-old female who presently is a longterm with mild dementia. She was seen in the emergency room and admitted on 225 of this year., Today was talking and suddenly became quite short of breath oxygen saturations down in the 60s and transferred to the emergency room here again.. Patient had to be placed up on BiPAP to maintain oxygen saturations that were life-sustaining.. CT scan of the lungs showed that there was a large amount of pleural effusion now in both lungs. Family member her daughter who says she is the POA was shown this by the ER physician.. It is noted that the patient is a DNR/DNI and did not want anything done for the lung cancer. Due to this reason the patient will be placed in a stepdown unit in the ICU to maintain the BiPAP to see if we can prolong her life at this point in time. The POA everything was explained and the patient's family does not want any intervention by pulmonology which is also the patient's wish per the family. That way there would be no unnecessary pain created by trying to prolong her life. With the size of this cancer and how quickly the respiratory distress has developed over the last couple of weeks. I do feel that the patient has less than a week to live at best. And even with intervention would not be any longer than 2 weeks. Plan at this time is for comfort care and hospice consult., Will try to maximize oxygenation and see if we can get the patient off of BiPAP. [facility] Disclaimer: The information contained in this section may have been updated after the patient was seen, as this information can be updated by other users. Medical History Squamous cell carcinoma Right lower lobe lung mass Smoking greater than 30 pack years Dyspnea on exertion Bronchogenic lung cancer Cancer Surgical History History of lung biopsy History of ear, nose, and throat (ENT) surgery History of cholecystectomy Family History Other No significant family history Social History Smoking Status: Former smoker tobacco type: cigarettes packs per day: 1 second hand exposure: No alcohol intake: never substance use type: denies use current occupational status: disabled Travel in the last 8 weeks: None household members: none housing: house current occupational exposures/hazards: No caffeine: Yes Have you lived/traveled outside [place] in past 30 days?: No Contact w/someone who lives/traveled outside [place] past 30 days?: No Exposure to someone with infectious disease in past 14 days?: No Do you have a fever (greater than 100.4 F or 38 C)?: No Have you tested positive for COVID-19: No Exposed to someone with COVID-19 in past 14 days?: No Do you have a sore throat?: No Do you have a cough?: No Do you have any weakness?: No Do you have any diarrhea?: No Are you experiencing any unusual bleeding?: No Do you have any muscle aches/pain?: No Do you have any abdominal pain?: No Are you experiencing loss of taste or smell?: No Other Medical History Have you received the Flu Vaccine for this season: No Have you received the Pneumonia Vaccine: No Review of Systems Review of Systems Review of systems:: other Review of systems (narrative): Patient has mild confusion. But does know her family does talk. Family wanted to talk to ER provider outside of room though. Constitutional Constitutional: Reports as per HPI Eyes Eyes: Reports as per HPI ENT Ears, Nose, Mouth, and Throat: Reports as per HPI *Cardiovascular Cardiovascular: Reports as per HPI *Respiratory Respiratory: Reports as per HPI Comments: BiPAP required for life-sustaining oxygenation *Gastrointestinal Gastrointestinal: Reports as per HPI *Genitourinary Genitourinary: Reports as per HPI *Musculoskeletal Musculoskeletal: Reports as per HPI Integumentary/Breasts Skin/Breast: Reports as per HPI *Neurologic Neurologic: Reports as per HPI Psychiatric Psychiatric: Reports as per HPI Endocrine Endocrine: Reports as per HPI Hematologic/Lymphatic Hematologic/Lymphatic: Reports as per HPI Allergic/Immunologic Allergic/Immunologic: Reports as per HPI Meds Home Medications and Allergies Home Medications ?Medication ?Instructions ?Recorded ?Confirmed ?Type rosuvastatin 10 mg tablet 10 mg PO DAILY 06/27/19 09/04/24 History hydrocodone 5 mg-acetaminophen 325 1 tab PO Q6H PRN Moderate Pain 09/05/24 Rx mg tablet (Scale Score 5-6) 7 days #30 tabs levofloxacin 750 mg tablet 750 mg PO Q48H 5 days #3 tabs 09/05/24 Rx pantoprazole 40 mg tablet,delayed 40 mg PO HS 30 days #30 tabs 09/05/24 Rx release New Prescriptions to Start Prescriptions: Allergies Allergy/AdvReac Type Severity Reaction Status Date / Time ibuprofen Allergy Severe Swelling Verified 12/25/23 11:30 of Lip/Tongue/Throat Exam Data for Last 24 hours Vital signs and Labs for Last 24 Hours: Temp Pulse Resp BP Pulse Ox O2 Del Method O2 Flow Rate 98.8 F 123 H 18 114/51 L 98 BiPAP 10 09/23/24 18:07 09/23/24 18:36 09/23/24 18:30 09/23/24 18:30 09/23/24 18:30 09/23/24 18:24 09/23/24 18:07 FiO2 40 09/23/24 18:24 Laboratory Results - last 24 hr 09/23/24 18:00: VBG pH 7.28 L, VBG pCO2 67.7 H, VBG pO2 34.3, VBG HCO3 31.2 H, VBG Total CO2 33.3 H, VBG O2 Saturation 64.0, VBG Base Excess 4.5 H, VBG Lactic Acid 1.1 09/23/24 18:03: WBC 23.0 H*, RBC 2.80 L, Hgb 8.9 L, Hct 30.3 L, MCV 108.2 H, MCH 31.8 H, MCHC 29.4 L, RDW 16.4, Plt Count 533 H, MPV 10.2, Neut % (Auto) 79.8, Lymph % (Auto) 11.8, [place] % (Auto) 5.9, Eos % (Auto) 1.4, Baso % (Auto) 0.3, Neut # (Auto) 18.3 H, Lymph # (Auto) 2.7, [place] # (Auto) 1.4 H, Eos # (Auto) 0.3, Baso # (Auto) 0.1, Sodium 140, Potassium 4.1, Chloride 101, Carbon Dioxide 36 H, Anion Gap 7.1, BUN 21 H, Creatinine 1.10 H, Estimated Creat Clear 45, Estimated GFR 49 L, Est GFR ( Amer) 59, Glucose 148 H, Calcium 8.4, Magnesium 1.5 L , Total Bilirubin 0.2, AST 42 H, ALT 19, Alkaline Phosphatase 233 H, NT-Pro-B Natriuret Pep 5010 H, Total Protein 7.0, Albumin 3.1 L, Globulin 3.9 H, Albumin/Globulin Ratio 0.8 L 09/23/24 19:45: Specimen Source Left radial, O2 % 40, ABG pH 7.33 L, ABG pCO2 59.3 H, ABG pO2 66.2 L, ABG HCO3 30.6 H, ABG Total CO2 32.5 H, ABG O2 Saturation 92, ABG Base Excess 4.7 H, Samir Test Acceptable I & O for Last 24 hours: Intake & Output 09/21/24 09/22/24 09/23/24 09/24/24 05:59 05:59 05:59 05:59 Weight 135 lb Radiology Reports for the Last 24 Hours: Large pleural effusion on the right and now new pleural effusion on the left Constitutional Constitutional: severe distress and obese *Routine HEENT Exam Head: Present normocephalic and atraumatic Eye: Present EOMI and PERRL ENT: Present mucous membranes moist *Routine Neck Exam Neck: Present supple *Routine Respiratory Exam Respiratory: Present diminished air movement Comments: Requires BiPAP to remain oxygenated *Routine Cardiovascular Exam Cardiovascular: Present tachycardia *Routine Abdominal Exam Abdominal: Present soft Comments: Difficult to process under present condition *Routine Rectal Exam Rectal:: deferred *Routine Genitalia Exam Genitalia:: deferred *Routine Extremities Exam Comments: Patient is moving all 4 extremities Routine Back/Spine/Pelvis Exam Back/Spine: Present full ROM Comments: No signs of back injury but patient was not set up or has not stated during my exam *Routine Skin Exam Skin: Present intact *Routine Neurological Exam Neurological: Present alert Comments: No obvious signs of neurologic deficit, hard to determine and to do full assessment with the patient's present respiratory status on BiPAP Routine Psychiatric Exam Psychiatric: Present normal affect Comments: Patient is cooperative she is keeping her BiPAP on. Main complaint was is that her mouth was dry H&P: Result Impressions 1. Respiratory failure secondary to lung cancer, also now with new pleural effusion over the last 2 weeks. Now in respiratory distress 2. Updates to family member that patient is a full DNR DNI. And that we will be looking at comfort care and hospice consult Imaging and Cardiology CT scan - chest: Status: image reviewed by me Additional comments: Large lung mass inferior right lung now with significant pleural effusion taking up two thirds of the right lung and one third of the left lung Assessment and Plan *Assessment and plan (1) Lung cancer: Status: Acute Qualifiers: Laterality: right Lung location: lower lobe of lung Qualified Code(s): C34.31 - Malignant neoplasm of lower lobe, right bronchus or lung Category: Medical Code(s): C34.90 - Malignant neoplasm of unspecified part of unspecified bronchus or lung (2) Squamous cell carcinoma: Status: Chronic Category: Medical (3) Respiratory failure: Status: Acute Qualifiers: Chronicity: acute on chronic Respiratory failure complication: hypoxia and hypercapnia Qualified Code(s): J96.21 - Acute and chronic respiratory failure with hypoxia; J96.22 - Acute and chronic respiratory failure with hypercapnia Category: Medical Code(s): J96.90 - Respiratory failure, unspecified, unspecified whether with hypoxia or hypercapnia (4) Bilateral pleural effusion: Status: Acute Category: Medical Code(s): J90 - Pleural effusion, not elsewhere classified (5) Hypoxia: Status: Acute Category: Medical Code(s): R09.02 - Hypoxemia (6) End of life care: Status: Acute Category: Medical Code(s): Z51.5 - Encounter for palliative care Plan 1. Will place in stepdown at this time being on BiPAP to maintain life- sustaining oxygen saturation., Per the family's wish and the POA's directive there will be no intervention at this time. Other family members will be coming in and the POA has asked for me to explain the situation to the patient's sister.. Do agree with the ER provider the patient without intervention and very good chance that will pass away within the next 48 hours. Maybe as long as a week on BiPAP.. Do agree that with any intervention we may only extend the patient's life for a few days to a week 2. Will minimize any lab work or intervention that would cause discomfort., Medications in place for comfort and for any pain that the patient may develop.
[2024-09-23] MEDS: PIPERCILLIN/TAZO 3.375 GM in 0.9 % SODIUM CHLORIDE 50 ML IV (21:08)
[2024-09-23] MEDS: MAGNESIUM SULFATE IN WATER 2 GM/50 ML PIGGYBACK IV (21:08)
[2024-09-23 21:33] LABS: Eosinophils % 2 % (0-3); Lymphocytes % 3 % (10-50); Macrocytosis 2+; Neutrophils % 95 % (42-76); Nucleated Red Blood Cells 1; Platelet Estimate Normal; Total Cells Counted 100
--- NOTE | 2024-09-23 21:53 | PC.NURSE ---
pt to unit via stretcher at [id number]
[2024-09-23 21:56] LABS: Troponin I 0.03 ng/ml (0.00-0.034)
[2024-09-23] MEDS: LORazepam 2MG/ML VIAL 1 MG IV (22:37)
[2024-09-24] VITALS (27 sets, daily range): BP systolic 106–145; BP diastolic 39–66; PULSE 86–123; RESP 12–21; TEMP 36.4–37.1; O2SAT 72–97; BMI 25.3
--- NOTE | 2024-09-24 03:58 | PC.NURSE ---
patient desats to 70's - oxygen placed in mouth at 6L NC to recover to mid 80's to 90. Discussed situation with daughter, Kaia and she doesn't want bipap at this time and would like for her mother to be comfortable. Upon admission, patient was alert - at this time patient is hard to arouse (only to stimulation) and confused when awake.
[2024-09-24] MEDS: HYDROMORPHONE 2MG/ML SYRINGE 1 MG IV ×2 (05:30→13:05)
--- NOTE | 2024-09-24 05:36 | PC.NURSE ---
turned patient and patient started moaning - asked her if she was in pain, patient stated yes. asked her if she wanted pain meds, patient stated yes. gave hydromorphone per SEP. patient sounds wet with audible wheezes - contacted hospitalist for hector.
[2024-09-24] MEDS: GLYCOPYRROLATE 0.2 MG/ML 1ML VIAL IV (05:39)
--- NOTE | 2024-09-24 05:58 | PC.NURSE ---
Addendum entered by Debra Xie RN 09/24/24 06:01: RT came to room and patient now sating at 96 on 6L NC, no changes made at this time. Patient continues to fluctuate saturations. Original Note: patient maintaining at 85% on 6L in mouth and agonal breathing. BP 137/62. RT notified.
--- NOTE | 2024-09-24 08:08 | SW/DCPLANNER ---
Addendum entered by Luisa Sandra 09/25/24 11:53: After further discussion w/ MD, Hospice and patient's family the decision was made for patient to return to [facility] today and Hospice to admit once she returns. Alessandra w/ [facility] at bedside to speak w/ patient. I have also updated Val w/ [facility] regarding this plan. Addendum entered by Luisa Sandra 09/24/24 13:17: Nicci w/ [facility] at bedside to evaluate patient this afternoon. After discussion between myself, Nicci and MD the decision was made to monitor patient overnight and make decision tomorrow morning regarding back to [facility] w/ Hospice vs Hospice inpatient at [facility]. Addendum entered by Luisa Sandra 09/24/24 08:50: Patient information has been faxed to Hospice at MD request. Per Dr Patel patient should qualify for Hospice inpatient. Alessandra w/ Hospice will call me once patient information is reviewed. Original Note: Patient currently resides at [facility] level of care. I have received a Hospice consult for this patient and will follow up w/ MD and patient/family. Discharge date is unknown at this time.
--- NOTE | 2024-09-24 08:36 | HMH.PHAINT1 ---
Pharmacy Intervention Comments: MEDICATION RECONCILIATION COMPLETED ON PATIENT USING EXTERNAL FILL HISTORY FROM PHARMACY AND DISCHARGE SUMMARY FROM PREVIOUS ADMISSION. -AIMEE MCGRATH, RICHARD
--- NOTE | 2024-09-24 09:56 | CARE MANAGER ---
Current Medications Glycopyrrolate (Glycopyrrolate 0.2 Mg/Ml 1ml Vial) 0.2 mg IV Q6HP PRN PRN Reason: Cough Stop: 10/24/24 05:33 Hydromorphone HCl (Hydromorphone 2mg/Ml Syringe) 1 mg IV Q3HP PRN PRN Reason: Severe Pain (7-10) Stop: 10/23/24 20:35 Last Admin: 09/24/24 05:30 Dose: 1 mg Lorazepam (Lorazepam 2mg/Ml Vial) 1 mg IV Q4HP PRN PRN Reason: Agitation Stop: 10/23/24 20:35 Last Admin: 09/23/24 22:37 Dose: 1 mg Ondansetron HCl (Ondansetron 4mg/2ml Vial) 4 mg IV Q6HP PRN PRN Reason: Nausea Stop: 10/23/24 20:35 Sodium Chloride (Sodium Chloride 0.9% 10ml Vial) 10 ml IV NEEDED PRN PRN Reason: Reconstitute Medications Stop: 10/24/24 07:40 Laboratory Results - last 72 hr 09/23/24 09/23/24 09/23/24 18:00 18:03 19:45 WBC 23.0 H* RBC 2.80 L Hgb 8.9 L Hct 30.3 L MCV 108.2 H MCH 31.8 H MCHC 29.4 L RDW 16.4 Plt Count 533 H MPV 10.2 Neut % (Auto) 79.8 Lymph % (Auto) 11.8 [place] % (Auto) 5.9 Eos % (Auto) 1.4 Baso % (Auto) 0.3 Neut # (Auto) 18.3 H Lymph # (Auto) 2.7 [place] # (Auto) 1.4 H Eos # (Auto) 0.3 Baso # (Auto) 0.1 Total Counted 100 Neutrophils % (Manual) 95 H Lymphocytes % (Manual) 3 L Eosinophils % (Manual) 2 Nucleated RBCs 1 Platelet Estimate Normal Macrocytosis 2+ Specimen Source Left radial O2 % 40 ABG pH 7.33 L ABG pCO2 59.3 H ABG pO2 66.2 L ABG HCO3 30.6 H ABG Total CO2 32.5 H ABG O2 Saturation 92 ABG Base Excess 4.7 H Samir Test Acceptable VBG pH 7.28 L VBG pCO2 67.7 H VBG pO2 34.3 VBG HCO3 31.2 H VBG Total CO2 33.3 H VBG O2 Saturation 64.0 VBG Base Excess 4.5 H VBG Lactic Acid 1.1 Sodium 140 Potassium 4.1 Chloride 101 Carbon Dioxide 36 H Anion Gap 7.1 BUN 21 H Creatinine 1.10 H Estimated Creat Clear 45 Estimated GFR 49 L Est GFR ( Amer) 59 Glucose 148 H Calcium 8.4 Magnesium 1.5 L Total Bilirubin 0.2 AST 42 H ALT 19 Alkaline Phosphatase 233 H Troponin I 0.03 NT-Pro-B Natriuret Pep 5010 H Total Protein 7.0 Albumin 3.1 L Globulin 3.9 H Albumin/Globulin Ratio 0.8 L Chlamy pneumoniae PCR Not detected Adenovirus (PCR) Not detected B. pertussis DNA (PCR) Not detected Coronavirus OC43 (PCR) Not detected Coronavirus HKU1 (PCR) Not detected Coronavirus 229E (PCR) Not detected SARS-CoV-2 (PCR) Not detected Coronavirus NL63 (PCR) Not detected Human Metapneumovir PCR Not detected Influenza A (H1) PCR Not detected Influ A (H1N1/09) PCR Not detected Influenza A (H3) PCR Not detected Influenza Type A (PCR) Not detected Influenza Type B (PCR) Not detected M. pneumoniae (PCR) Not detected Parainfluenza 1 (PCR) Not detected Parainfluenza 2 (PCR) Not detected Parainfluenza 3 (PCR) Not detected Parainfluenza 4 (PCR) Not detected RSV (PCR) Not detected Entero/Rhino (PCR) Not detected Vital Signs (72 hours) 09/23/24 17:56 09/23/24 18:04 09/23/24 18:07 Temperature 98.8 F Pulse Rate 130 H 140 H Pulse Rate [Left Radial] 132 H Respiratory Rate 23 21 17 Blood Pressure 157/77 H 147/66 H Blood Pressure [Right Arm] 147/66 H 02 Sat by Pulse Oximetry 99 97 99 Oxygen Delivery Method CPAP CPAP CPAP Oxygen Flow Rate (LPM) 10 Fraction of Inspired Oxygen 09/23/24 18:24 09/23/24 18:24 09/23/24 18:30 Temperature Pulse Rate 115 H Pulse Rate [Left Radial] Respiratory Rate 18 Blood Pressure 114/51 L Blood Pressure [Right Arm] 02 Sat by Pulse Oximetry 96 98 Oxygen Delivery Method BiPAP Oxygen Flow Rate (LPM) Fraction of Inspired Oxygen 40 40 09/23/24 18:36 09/23/24 18:36 09/23/24 20:23 Temperature Pulse Rate 126 H 123 H Pulse Rate [Left Radial] Respiratory Rate Blood Pressure Blood Pressure [Right Arm] 02 Sat by Pulse Oximetry Oxygen Delivery Method Nasal Cannula Oxygen Flow Rate (LPM) 6 Fraction of Inspired Oxygen 09/23/24 20:36 09/23/24 20:36 09/23/24 20:59 Temperature 98.6 F 98.3 F Pulse Rate 120 H 117 H Pulse Rate [Left Radial] 115 H Respiratory Rate 20 Blood Pressure 129/62 Blood Pressure [Right Arm] 134/65 02 Sat by Pulse Oximetry 96 Oxygen Delivery Method Nasal Cannula BiPAP Oxygen Flow Rate (LPM) 6 Fraction of Inspired Oxygen 09/23/24 21:44 09/23/24 22:02 09/23/24 23:00 Temperature Pulse Rate 120 H Pulse Rate [Left Radial] Respiratory Rate 19 Blood Pressure Blood Pressure [Right Arm] 02 Sat by Pulse Oximetry 93 L 93 L Oxygen Delivery Method Nasal Cannula Nasal Cannula Oxygen Flow Rate (LPM) 6 5 Fraction of Inspired Oxygen 09/24/24 00:00 09/24/24 00:00 09/24/24 00:00 Temperature Pulse Rate 109 H Pulse Rate [Left Radial] Respiratory Rate 18 Blood Pressure 118/53 L Blood Pressure [Right Arm] 02 Sat by Pulse Oximetry 95 Oxygen Delivery Method Non-Rebreather Oxygen Flow Rate (LPM) 2 Fraction of Inspired Oxygen 09/24/24 00:05 09/24/24 01:00 09/24/24 02:00 Temperature Pulse Rate 102 H 92 H Pulse Rate [Left Radial] Respiratory Rate Blood Pressure 118/53 L Blood Pressure [Right Arm] 02 Sat by Pulse Oximetry 92 L Oxygen Delivery Method Nasal Cannula Nasal Cannula Oxygen Flow Rate (LPM) 5 5 Fraction of Inspired Oxygen 09/24/24 02:00 09/24/24 02:00 09/24/24 03:00 Temperature Pulse Rate 97 H Pulse Rate [Left Radial] Respiratory Rate 17 Blood Pressure Blood Pressure [Right Arm] 02 Sat by Pulse Oximetry 95 Oxygen Delivery Method Nasal Cannula Nasal Cannula Oxygen Flow Rate (LPM) 6 6 Fraction of Inspired Oxygen 09/24/24 03:00 09/24/24 03:00 09/24/24 03:10 Temperature Pulse Rate 93 H Pulse Rate [Left Radial] Respiratory Rate 15 Blood Pressure Blood Pressure [Right Arm] 02 Sat by Pulse Oximetry 72 L 92 L 88 L Oxygen Delivery Method Nasal Cannula Nasal Cannula Oxygen Flow Rate (LPM) 5 6 Fraction of Inspired Oxygen 09/24/24 03:57 09/24/24 04:00 09/24/24 04:00 Temperature 97.6 F Pulse Rate 86 90 Pulse Rate [Left Radial] Respiratory Rate 16 16 Blood Pressure 118/53 L 106/39 L Blood Pressure [Right Arm] 02 Sat by Pulse Oximetry 93 L 93 L Oxygen Delivery Method Nasal Cannula Oxygen Flow Rate (LPM) 6 Fraction of Inspired Oxygen 09/24/24 04:34 09/24/24 04:36 09/24/24 04:47 Temperature Pulse Rate Pulse Rate [Left Radial] Respiratory Rate 12 Blood Pressure Blood Pressure [Right Arm] 02 Sat by Pulse Oximetry 76 L 89 L Oxygen Delivery Method Nasal Cannula Nasal Cannula Nasal Cannula Oxygen Flow Rate (LPM) 6 6 6 Fraction of Inspired Oxygen 09/24/24 05:00 09/24/24 05:56 09/24/24 05:56 Temperature Pulse Rate 103 H 96 H Pulse Rate [Left Radial] Respiratory Rate 17 14 Blood Pressure 137/62 Blood Pressure [Right Arm] 02 Sat by Pulse Oximetry 97 82 L Oxygen Delivery Method Oxygen Flow Rate (LPM) Fraction of Inspired Oxygen 09/24/24 06:00 09/24/24 06:00 09/24/24 06:10 Temperature 98.7 F Pulse Rate 123 H 98 H Pulse Rate [Left Radial] Respiratory Rate 12 13 Blood Pressure 137/62 Blood Pressure [Right Arm] 02 Sat by Pulse Oximetry 97 94 L Oxygen Delivery Method Nasal Cannula Nasal Cannula Oxygen Flow Rate (LPM) 6 6 Fraction of Inspired Oxygen 09/24/24 07:00 09/24/24 07:13 09/24/24 07:13 Temperature 97.8 F Pulse Rate 107 H 105 H Pulse Rate [Left Radial] Respiratory Rate 12 14 Blood Pressure 119/61 Blood Pressure [Right Arm] 02 Sat by Pulse Oximetry 85 L 97 Oxygen Delivery Method Oxygen Flow Rate (LPM) Fraction of Inspired Oxygen 09/24/24 08:00 09/24/24 08:00 09/24/24 08:00 Temperature Pulse Rate 96 H Pulse Rate [Left Radial] Respiratory Rate 13 Blood Pressure 120/58 L Blood Pressure [Right Arm] 02 Sat by Pulse Oximetry 95 Oxygen Delivery Method Nasal Cannula Oxygen Flow Rate (LPM) 6 Fraction of Inspired Oxygen 09/24/24 08:12 09/24/24 09:00 09/24/24 09:00 Temperature Pulse Rate 96 H 106 H Pulse Rate [Left Radial] Respiratory Rate 20 Blood Pressure Blood Pressure [Right Arm] 02 Sat by Pulse Oximetry 97 Oxygen Delivery Method Nasal Cannula Oxygen Flow Rate (LPM) 6 Fraction of Inspired Oxygen
--- NOTE | 2024-09-24 10:11 | EXP.ACUTE.PN ---
Subjective *Date: 09/24/24 *Time: 18:19 Interval history: Patient having intermittent pain. Tolerating some p.o. intake today however. On nasal cannula oxygen at 2 L maintaining sats above 90. After discussion with family and patient, interested in pursuing hospice. Hospice consult placed Medical Exam Vital signs and Labs for Last 24 Hours: Vital Signs Temp Pulse Pulse Resp BP BP Pulse Ox 09/24/24 09:00 106 H 20 97 09/24/24 09:00 09/24/24 08:12 96 H 09/24/24 08:00 120/58 L 09/24/24 08:00 96 H 13 95 09/24/24 08:00 09/24/24 07:13 97.8 F 119/61 09/24/24 07:13 105 H 14 97 09/24/24 07:00 107 H 12 85 L 09/24/24 06:10 09/24/24 06:00 98 H 13 94 L 09/24/24 06:00 98.7 F 123 H 12 137/62 97 09/24/24 05:56 137/62 09/24/24 05:56 96 H 14 82 L 09/24/24 05:00 103 H 17 97 09/24/24 04:47 09/24/24 04:36 12 89 L 09/24/24 04:34 76 L 09/24/24 04:00 106/39 L 09/24/24 04:00 90 16 93 L 09/24/24 03:57 97.6 F 86 16 118/53 L 93 L 09/24/24 03:10 88 L 09/24/24 03:00 93 H 15 92 L 09/24/24 03:00 72 L 09/24/24 03:00 09/24/24 02:00 97 H 17 95 09/24/24 02:00 09/24/24 02:00 92 H 118/53 L 92 L 09/24/24 01:00 09/24/24 00:05 102 H 09/24/24 00:00 118/53 L 09/24/24 00:00 109 H 18 95 09/24/24 00:00 09/23/24 23:00 09/23/24 22:02 120 H 19 93 L 09/23/24 21:44 93 L 09/23/24 20:59 98.3 F 117 H 20 129/62 09/23/24 20:36 120 H 09/23/24 20:36 98.6 F 115 H 134/65 96 09/23/24 20:23 09/23/24 18:36 123 H 09/23/24 18:36 126 H 09/23/24 18:30 115 H 18 114/51 L 98 09/23/24 18:24 96 09/23/24 18:24 09/23/24 18:07 98.8 F 132 H 17 147/66 H 99 09/23/24 18:04 140 H 21 147/66 H 97 09/23/24 17:56 130 H 23 157/77 H 99 O2 Del Method O2 Flow Rate FiO2 09/24/24 09:00 09/24/24 09:00 Nasal Cannula 6 09/24/24 08:12 09/24/24 08:00 09/24/24 08:00 09/24/24 08:00 Nasal Cannula 6 09/24/24 07:13 09/24/24 07:13 09/24/24 07:00 09/24/24 06:10 Nasal Cannula 6 09/24/24 06:00 09/24/24 06:00 Nasal Cannula 6 09/24/24 05:56 09/24/24 05:56 09/24/24 05:00 09/24/24 04:47 Nasal Cannula 6 09/24/24 04:36 Nasal Cannula 6 09/24/24 04:34 Nasal Cannula 6 09/24/24 04:00 09/24/24 04:00 09/24/24 03:57 Nasal Cannula 6 09/24/24 03:10 Nasal Cannula 6 09/24/24 03:00 09/24/24 03:00 Nasal Cannula 5 09/24/24 03:00 Nasal Cannula 6 09/24/24 02:00 09/24/24 02:00 Nasal Cannula 6 09/24/24 02:00 Nasal Cannula 5 09/24/24 01:00 Nasal Cannula 5 09/24/24 00:05 09/24/24 00:00 09/24/24 00:00 09/24/24 00:00 Non-Rebreather 2 09/23/24 23:00 Nasal Cannula 5 09/23/24 22:02 09/23/24 21:44 Nasal Cannula 6 09/23/24 20:59 BiPAP 09/23/24 20:36 09/23/24 20:36 Nasal Cannula 6 09/23/24 20:23 Nasal Cannula 6 09/23/24 18:36 09/23/24 18:36 09/23/24 18:30 09/23/24 18:24 BiPAP 40 09/23/24 18:24 40 09/23/24 18:07 CPAP 10 09/23/24 18:04 CPAP 09/23/24 17:56 CPAP Intake and Output 09/23/24 09/24/24 09/24/24 23:59 07:59 15:59 Intake Total 640 / 640 Output Total 0 / 0 Balance 640 / 640 Intake: Intake, Oral Amount 240 / 240 Intake, Total IV Amount 400 / 400 Magnesium Sulfate in Water 2 gm 50 / 50 In 50 ml @ 50 mls/hr IV ONCE ONE Rx#:[id number] Pipercillin/Tazo 3.375 gm In 0. 50 / 50 9 % Sodium Chloride 50 ml @ 100 mls/hr IV ONCE ONE Rx#: [id number] Vancomycin/Water For Inj (Peg) 300 / 300 1.5 gm In 300 ml @ 150 mls/hr IV ONCE ONE Rx#:[id number] Output: Output, Urine Amount 0 / 0 Other: Number of Voids 0 Weight 67.313 kg 67.311 kg Patient Weight 09/24/24 23:59 Weight 67.311 kg Laboratory Results - last 24 hr 09/23/24 18:00: VBG pH 7.28 L, VBG pCO2 67.7 H, VBG pO2 34.3, VBG HCO3 31.2 H, VBG Total CO2 33.3 H, VBG O2 Saturation 64.0, VBG Base Excess 4.5 H, VBG Lactic Acid 1.1 09/23/24 18:03: WBC 23.0 H*, RBC 2.80 L, Hgb 8.9 L, Hct 30.3 L, MCV 108.2 H, MCH 31.8 H, MCHC 29.4 L, RDW 16.4, Plt Count 533 H, MPV 10.2, Neut % (Auto) 79.8, Lymph % (Auto) 11.8, [place] % (Auto) 5.9, Eos % (Auto) 1.4, Baso % (Auto) 0.3, Neut # (Auto) 18.3 H, Lymph # (Auto) 2.7, [place] # (Auto) 1.4 H, Eos # (Auto) 0.3, Baso # (Auto) 0.1, Total Counted 100, Neutrophils % (Manual) 95 H, Lymphocytes % (Manual) 3 L, Eosinophils % (Manual) 2, Nucleated RBCs 1, Platelet Estimate Normal, Macrocytosis 2+, Sodium 140, Potassium 4.1, Chloride 101, Carbon Dioxide 36 H, Anion Gap 7.1, BUN 21 H, Creatinine 1.10 H, Estimated Creat Clear 45, Estimated GFR 49 L, Est GFR ( Amer) 59, Glucose 148 H, Calcium 8.4, Magnesium 1.5 L, Total Bilirubin 0.2, AST 42 H, ALT 19, Alkaline Phosphatase 233 H, Troponin I 0.03, NT-Pro-B Natriuret Pep 5010 H, Total Protein 7.0, Albumin 3.1 L, Globulin 3.9 H, Albumin/Globulin Ratio 0.8 L, Chlamy pneumoniae PCR Not detected, Adenovirus (PCR) Not detected, B. pertussis DNA (PCR) Not detected, Coronavirus OC43 (PCR) Not detected, Coronavirus HKU1 (PCR) Not detected, Coronavirus 229E (PCR) Not detected, SARS-CoV-2 (PCR) Not detected, Coronavirus NL63 (PCR) Not detected, Human Metapneumovir PCR Not detected, Influenza A (H1) PCR Not detected, Influ A (H1N1/09) PCR Not detected, Influenza A (H3) PCR Not detected, Influenza Type A (PCR) Not detected, Influenza Type B (PCR) Not detected, M. pneumoniae (PCR) Not detected, Parainfluenza 1 (PCR) Not detected, Parainfluenza 2 (PCR) Not detected, Parainfluenza 3 (PCR) Not detected, Parainfluenza 4 (PCR) Not detected, RSV (PCR) Not detected, Entero/Rhino (PCR) Not detected 09/23/24 19:45: Specimen Source Left radial, O2 % 40, ABG pH 7.33 L, ABG pCO2 59.3 H, ABG pO2 66.2 L, ABG HCO3 30.6 H, ABG Total CO2 32.5 H, ABG O2 Saturation 92, ABG Base Excess 4.7 H, Samir Test Acceptable I & O for Labs for Last 24 Hours: Intake & Output 09/21/24 09/22/24 09/23/24 09/24/24 23:59 23:59 23:59 23:59 Intake Total 640 / 640 Output Total 0 / 0 Balance 640 / 640 Weight 67.313 kg 67.311 kg Constitutional: Present moderate distress, chronically ill appearing and cooperative Head: Present atraumatic and normocephalic ENT: Present normal exam Respiratory: Present prolonged expiratory phase, rhonchi, wheezes and crackles Cardiac: Present Reg Rate and Rhythm GI: Present normal bowel sounds; Absent tenderness Extremities: Present normal inspection and full ROM Skin: Present intact; Absent erythema Neuro: Present Grossly Intact, alert, awake, oriented x 3 and moves all extremities Assessment and Plan *Assessment and plan (1) Cancer related pain: Status: Acute Category: Medical Code(s): G89.3 - Neoplasm related pain (acute) (chronic) (2) Lung cancer: Status: Acute Qualifiers: Laterality: right Lung location: lower lobe of lung Qualified Code(s): C34.31 - Malignant neoplasm of lower lobe, right bronchus or lung Category: Medical Code(s): C34.90 - Malignant neoplasm of unspecified part of unspecified bronchus or lung (3) Squamous cell carcinoma: Status: Chronic Category: Medical (4) Respiratory failure: Status: Acute Qualifiers: Chronicity: acute on chronic Respiratory failure complication: hypoxia and hypercapnia Qualified Code(s): J96.21 - Acute and chronic respiratory failure with hypoxia; J96.22 - Acute and chronic respiratory failure with hypercapnia Category: Medical Code(s): J96.90 - Respiratory failure, unspecified, unspecified whether with hypoxia or hypercapnia (5) Bilateral pleural effusion: Status: Acute Category: Medical Code(s): J90 - Pleural effusion, not elsewhere classified (6) Hypoxia: Status: Acute Category: Medical Code(s): R09.02 - Hypoxemia (7) End of life care: Status: Acute Category: Medical Code(s): Z51.5 - Encounter for palliative care Plan 74-year-old female with significant metastatic lung cancer with bone metastases and erosions in her chest. Goals of care discussions had overnight with gastroenterology manager, decision made to not proceed with aggressive intervention. Will proceed with hospice consult today. Continue comfort care. Initiate oxycodone 10 mg every 6 hours for severe pain, continue Dilaudid 1 mg IM every 3 hours for breakthrough pain. Monitor for toxicity Discontinued antibiotics Comfort feeds Supplemental oxygen as needed, will continue with 6 L oxygen. If has respiratory distress overnight and needs BiPAP, will consider BiPAP placement. Hospice can do BiPAP at discharge if necessitating it during admission. Further evaluation in the morning for decision of inpatient hospice versus discharge back to long-term care facility with hospice. DNR/DNI No further labs ordered.
--- NOTE | 2024-09-24 13:00 | PC.NURSE ---
Addendum entered by Damari Augustine RN 09/24/24 16:14: hospice and pt family at bedside at this time. Original Note: hospice at pt family at bedside at this time
--- NOTE | 2024-09-24 14:34 | PC.NURSE ---
PT COMPLAINED OF PAIN WHILE FLUSHING IV, LEAKING NOTED ON ASSESSMENT. IV DISCONTINUED AT THIS TIME WIT TIP INTACT. PT REFUSED NEW IV, NOTIFIED.
[2024-09-24] MEDS: OXYCODONE 5MG IMMEDIATE RELEASE TABLET 10 MG PO (18:44)
[2024-09-24] MEDS: HYDROMORPHONE 2MG/ML SYRINGE 1 MG IM (20:31)
[2024-09-25] VITALS (7 sets, daily range): BP systolic 147–165; BP diastolic 66–76; PULSE 102–120; RESP 14–21; TEMP 36.7–36.9; O2SAT 91–98; BMI 25.6
[2024-09-25] MEDS: OXYCODONE 5MG IMMEDIATE RELEASE TABLET 10 MG PO ×3 (05:47→13:38)
--- NOTE | 2024-09-25 06:05 | PC.NURSE ---
Call made to Kaia, patient daughter to update on plan of care and patient presentation. Informed of patient increased work of breathing, along with wet cough getting worse. Informed that patient was bladder scanned where only 250ml was seen. Educated patient and daughter about possible need for catheter in near future due to oxygen demand, and desatting from exertion when ambulating to the bedside commode. Patient now with purewick in place. Patient also complaining of back pain, and medicated per MAR and PRN medications. Patient medicated, repositioned to comfort, and resting comfortably at this time.
[2024-09-25] MEDS: SENNOSIDES 8.6MG/DOCUSATE 50MG TABLET 1 TAB PO (10:41)
--- NOTE | 2024-09-25 10:50 | P.DS_ITS ---
General Admission date:: 09/23/24 Discharge date: 09/25/24 HPI HPI HPI: This 74-year-old female who presently is a retirement with mild dementia. She was seen in the emergency room and admitted on of this year., Today was talking and suddenly became quite short of breath oxygen saturations down in the 60s and transferred to the emergency room here again.. Patient had to be placed up on BiPAP to maintain oxygen saturations that were life-sustaining.. CT scan of the lungs showed that there was a large amount of pleural effusion now in both lungs. Family member her daughter who says she is the POA was shown this by the ER physician.. It is noted that the patient is a DNR/DNI and did not want anything done for the lung cancer. Due to this reason the patient will be placed in a stepdown unit in the ICU to maintain the BiPAP to see if we can prolong her life at this point in time. The POA everything was explained and the patient's family does not want any intervention by pulmonology which is also the patient's wish per the family. That way there would be no unnecessary pain created by trying to prolong her life. With the size of this cancer and how quickly the respiratory distress has developed over the last couple of weeks. I do feel that the patient has less than a week to live at best. And even with intervention would not be any longer than 2 weeks. Plan at this time is for comfort care and hospice consult., Will try to maximize oxygenation and see if we can get the patient off of BiPAP. Hospital Course Hospital Course Hospital Course: Tracy Ortiz is a 74-year-old female with a history of metastatic lung cancer. Presented from her nursing facility due to worsening pain and meeting sepsis criteria. Initiated on antibiotics, but after goals of care discussion with family, decision made to de-escalate care proceed with hospice. Hospice consulted for symptom management and comfort care. Stable to discharge back to [facility] with hospice. Problems addressed as follows: #Lung cancer #Physical deconditioning ? Patient has 8.5 x 7 x 8.5 right lower lobe mass, with mets to posterior chest wall and, 11th rib, T11-12 vertebrae. Hospice was consulted, to be admitted to hospice on return to nursing facility. Initiated on oxycodone every 6 hours for severe pain and Ativan for anxiety. Will continue with comfort care. Comfort feeds as tolerated. On 6 L oxygen at this time. Continue as needed. Stable to discharge back to [facility] with hospice support. Discontinued medications for hypertension and hyperlipidemia. Required BiPAP initially on presentation, if needs BiPAP at nursing facility, hospice can facilitate this. DNR/DNI Total time spent on discharge 32 minutes in counseling, documentation, chart review, and direct care with patient. Exam Data for Last 24 hours Vital signs and Labs for Last 24 Hours: Temp Pulse Resp BP Pulse Ox O2 Del Method O2 Flow Rate 98.4 F 112 H 14 156/74 H 98 Nasal Cannula 6 09/25/24 08:00 09/25/24 08:59 09/25/24 08:00 09/25/24 08:00 09/25/24 10:39 09/25/24 10:39 09/25/24 10:39 FiO2 40 09/23/24 18:24 I & O for Last 24 hours: Intake & Output 09/22/24 09/23/24 09/24/24 09/25/24 23:59 23:59 23:59 23:59 Intake Total 910 / 910 200 / 200 Output Total 425 / 425 300 / 300 Balance 485 / 485 -100 / -100 Weight 67.313 kg 67.311 kg 68.12 kg Microbiology Reports for the Last 24 Hours: Microbiology 09/23/24 18:04 Blood Blood Culture - Preliminary NO GROWTH AFTER 24 HOURS 09/23/24 18:03 Blood Blood Culture - Preliminary NO GROWTH AFTER 24 HOURS Constitutional Constitutional: moderate distress, average body habitus, chronically ill appea ring and cooperative *Routine HEENT Exam Head: Present normocephalic Eye: Present EOMI and PERRL ENT: Present mucous membranes moist *Routine Neck Exam Neck: Present supple; Absent lymphadenopathy *Routine Respiratory Exam Respiratory: Present rhonchi and wheezes *Routine Cardiovascular Exam Cardiovascular: Present RRR *Routine Abdominal Exam Abdominal: Present soft and normoactive bowel sounds; Absent tenderness *Routine Rectal Exam Patient deferred: visual exam *Routine Exam Patient deferred: external exam *Routine Extremities Exam Extremities: Absent cyanosis, clubbing or edema *Routine Skin Exam Skin: Present intact and warm; Absent rash *Routine Neurological Exam Neurological: Present alert, oriented X3 and moving all extremities; Absent altered mental status Results Data Completed and Pending Labs on day of discharge: Preliminary micro results at discharge 09/23/24 18:04 Blood Culture - Preliminary Blood NO GROWTH AFTER 24 HOURS 09/23/24 18:03 Blood Culture - Preliminary Blood NO GROWTH AFTER 24 HOURS DS: Diagnosis Discharge Diagnosis (1) Cancer related pain: Status: Acute Code(s): G89.3 - Neoplasm related pain (acute) (chronic) (2) Lung cancer: Status: Acute Code(s): C34.90 - Malignant neoplasm of unspecified part of unspecified bronchus or lung Qualifiers: Laterality: right Lung location: lower lobe of lung Qualified Code(s): C34.31 - Malignant neoplasm of lower lobe, right bronchus or lung (3) Squamous cell carcinoma: Status: Chronic (4) Respiratory failure: Status: Acute Code(s): J96.90 - Respiratory failure, unspecified, unspecified whether with hypoxia or hypercapnia Qualifiers: Chronicity: acute on chronic Respiratory failure complication: hypoxia and hypercapnia Qualified Code(s): J96.21 - Acute and chronic respiratory failure with hypoxia; J96.22 - Acute and chronic respiratory failure with hypercapnia (5) Bilateral pleural effusion: Status: Acute Code(s): J90 - Pleural effusion, not elsewhere classified (6) Hypoxia: Status: Acute Code(s): R09.02 - Hypoxemia (7) End of life care: Status: Acute Code(s): Z51.5 - Encounter for palliative care Meds Home Medications and Allergies Home Medications ?Medication ?Instructions ?Recorded ?Confirmed ?Type pantoprazole 40 mg tablet,delayed 40 mg PO HS 30 days #30 tabs 09/05/24 09/24/24 Rx release lorazepam 0.5 mg tablet (Ativan) 0.5 mg PO Q6HP PRN anxiety #14 tabs 09/25/24 Rx oxycodone 5 mg tablet 10 mg (2 x 5 mg) PO Q6HP PRN 09/25/24 Rx Severe Pain (7-10) 10 days #40 tabs sennosides 8.6 mg-docusate sodium 1 tab PO BID 30 days #60 tabs 09/25/24 Rx 50 mg tablet (Stimulant Laxative Plus) New Prescriptions to Start Prescriptions: lorazepam [Ativan] Ger Patel oxycodone Ger Patel sennosides-docusate sodium [Stimulant Laxative Plus] Ger Patel Allergies Allergy/AdvReac Type Severity Reaction Status Date / Time ibuprofen Allergy Severe Swelling Verified 12/25/23 11:30 of Lip/Tongue/Throat Discharge Plan Disposition Patient Disposition: Hospice - Medical Facility Condition: Undetermined Discharge Order Discharge Orders: Discharge Order (Routine); Ordered 09/25/24 Ordered By: Ger Patel Follow up Plan Prescriptions/Medication Reconciliation: New oxycodone 5 mg Tablet 10 mg PO Q6HP PRN (Reason: Severe Pain (7-10)) 10 Days Qty: 40 0RF sennosides-docusate sodium [Stimulant Laxative Plus] 8.6-50 mg Tablet 1 tab PO BID 30 Days Qty: 60 0RF lorazepam [Ativan] 0.5 mg tablet 0.5 mg PO Q6HP PRN (Reason: anxiety) Qty: 14 0RF Continued pantoprazole 40 mg Tablet,Delayed Release (Dr/Ec) 40 mg PO HS 30 Days Qty: 30 0RF Discontinued rosuvastatin 10 mg tablet 10 mg PO HS hydrocodone-acetaminophen 5-325 mg tablet 1 tab PO Q6HP PRN (Reason: Moderate Pain (Scale Score 5-6)) Problem Reconciliation Problems Reviewed?: Yes Patient Discharge Instructions ACTIVITY: Continue current activity DIET: continue same diet Print Language: Pashto Providers Primary Care Provider: Kane Mena Admangela Provider: Edd Fernandes Attending Provider: Edd Fernandes
--- NOTE | 2024-09-25 14:36 | PC.NURSE ---
called report to [facility] at 1350. called EMS for transport at 1410. pt left with ems at 1430
== END 2024-09-25 14:30 | disposition hospice, inpatient (51) | DRG 189 ==
LOC: ER 17:55 → ICU 09-24 06:10
PROVIDERS: Physician Assistant; Admitting Provider Student in an Organized Health Care Education/Training Program; Emergency Provider Student in an Organized Health Care Education/Training Program; PCP Internal Medicine Adolescent Medicine; Visit Provider Student in an Organized Health Care Education/Training Program
DX: J96.21 Acute and chronic respiratory failure with hypoxia (principal); C34.31 Malignant neoplasm of lower lobe, right bronchus or lung; C79.51 Secondary malignant neoplasm of bone; J90 Pleural effusion, not elsewhere classified; G89.3 Neoplasm related pain (acute) (chronic); J96.22 Acute and chronic respiratory failure with hypercapnia; Z87.891 Personal history of nicotine dependence; I10 Essential (primary) hypertension; E78.5 Hyperlipidemia, unspecified; Z79.899 Other long term (current) drug therapy; Z88.8 Allergy status to other drugs, medicaments and biological substances; Z66 Do not resuscitate; Z51.5 Encounter for palliative care
CPT/HCPCS: 71275; 80053; 82803; 83735; 83880; 84484; 85007; 85025; 87040; 87633; 93005; 94761; 99291; J1100; J1171; J1596; J2060; J2543; J3372; J3475; J7620; Q9967